=== PATIENT | female | born 1995 | race Caucasian/White ===

== ENCOUNTER 2018-12-08 16:44 | Emergency (ER) | payer BC, SELFPAY ==
--- NOTE | 2018-12-08 17:38 | DI.RAD_ITS ---
EXAM: XR THUMB LT CLINICAL HISTORY: . TECHNIQUE: 2D digital imaging was performed. COMPARISON: None. FINDINGS: BONES: No acute fracture is present. No bony destructive lesion is seen. JOINTS: No dislocation present. SOFT TISSUE: Normal. IMPRESSION: No evidence of acute fracture, dislocation, or subluxation.
--- NOTE | 2018-12-08 17:39 | ED.GENADUL_ITS ---
Discharge Plan Disposition Patient Disposition: HOME Discharge Details Chief Complaint: Orthopedic Clinical Impression: Left thumb sprain Primary Care Provider: Pietro Roman ED Provider: Josesito Escobar Home Meds and New Rx's Prescriptions: Continued multivitamin [Multi-Day] 1 EACH tablet 1 ea PO DAILY RF: 0 epinephrine [EpiPen 2-Jermaine] 0.3 MG/0.3 ML auto-injector 0.3 mg IJ DIRECTED PRNQty: 1 RF: 3 Discharge Instructions Additional Instructions: Use splint for the next 1 week. Please take ibuprofen over the counter. Take 600mg by mouth every 6 hours as needed for pain. Please contact your primary care physician to arrange follow-up. If pain persist she will need additional diagnostic testing. Be sure to discuss with your doctor. Return to the ER for any worsening or new concerning symptoms. Referrals: Pietro Roman MD [Primary Care Provider] - Discharge Data Discharge Date/Time-TO BE ENTERED AT DEPARTURE: 12/08/18 19:10 Medical Decision Making 23-year-old female here with hyper abduction injury to her left thumb, tender at the base of her thumb with concern for ulnar collateral ligament injury. X-ray of the thumb was interpreted by radiology: Questionable minimally displaced fracture versus irregular treated channel at the base of the thumb distal phalanx as detailed above. Patient is not tender in this area. Suspect sprain of the thumb. Patient placed in thumb spica and usual and customary discharge instructions provided. HPI General Mode of arrival: ambulatory . Date/Time Provider Initiated Documentation: 12/08/18 17:21 . Limitations to Documentation: no limitations . Information obtained by: patient . HPI Narrative: 23-year-old female here with left thumb pain. Patient notes she was working on a barn today and a piece of wood fell and landed on her left thumb. She has pain at the base of her thumb. Pain is moderate and worse on palpation and with movement of her thumb. She may have hyperextended her thumb with injury. No associated numbness. No other injury. Related Data Home Medications Medication Instructions Recorded Confirmed multivitamin [Multi-Day] 1 ea PO DAILY 12/20/15 12/08/18 epinephrine [EpiPen 2-Jermaine] 0.3 mg IJ DIRECTED PRN #1 09/30/17 12/08/18 [email or web address].injct Previous Rx's Medication Instructions Recorded epinephrine [EpiPen 2-Jermaine] 0.3 mg IJ DIRECTED PRN #1 09/30/17 auto.injct Allergies Allergy/AdvReac Type Severity Reaction Status Date / Time bee venom protein (honey bee) Allergy Severe anaphylaxis Unverified 12/08/18 17:48 strawberry Allergy Mild Hives Unverified 12/08/18 17:48 dairy products AdvReac Mild upset Uncoded 12/08/18 17:48 stomach Review of Systems Musculoskeletal Musculoskeletal: Reports as per [facility] Medical History Chlamydia infection Urine Chlamydia + . Rx with Azithromycin. Contraception counseled and will have Nexpalon inserted. Family History Other No problems noted. Sister Asthma Social History Smoking/Tobacco Use Status: Never Alcohol Intake: never Drug use: Never Do you feel safe at home: Yes Do you feel safe in your relationship?: Yes Exam Const General: cooperative and healthy appearing Orientation: alert and awake Extrem Left upper extremity: hand Details: neuromotor exam normal, neurosensory exam normal and tenderness Location: of the thumb Location: at the MCP joint
[2018-12-08 17:44] VITALS: BP 116/67; PULSE 100; RESP 14; TEMP 36.7
--- NOTE | 2018-12-08 18:37 | DI.VRAD_ITS ---
EXAM: XR Left Finger(s) EXAM DATE/TIME: 12/08/2018 5:39 PM CLINICAL HISTORY: 23 years old, female; Finger(s); Left; Patient HX: Pain medial proximal thumb, injury TECHNIQUE: Imaging protocol: XR Left fingers. Views: Minimum 2 views. COMPARISON: CR LEFT HAND COMPLETE 05/14/2015 5:26 PM FINDINGS: Bones/joints: There is a very subtle linear lucencies seen at the base of the thumb distal phalanx on image one series 2, questionable for a minimally displaced fracture versus an irregular nutrient channel. No other acutely displaced fractures are appreciated. No dislocation. Soft tissues: Mild soft tissue swelling surrounding the DIP suggested. IMPRESSION: Questionable minimally displaced fracture versus irregular nutrient channel at the base of the thumb distal phalanx, as detailed above. Dictated and Authenticated by: Bruno Navas MD. Ordering:LEIDY Bellamy MD
== END 2018-12-08 19:10 | disposition home or self-care (01) ==
PROVIDERS: Emergency Provider Student in an Organized Health Care Education/Training Program; PCP Pediatrics
DX: S63.602A Unspecified sprain of left thumb, initial encounter (principal)
CPT/HCPCS: 29125; 81025; 99283; 73140; L3807

== ENCOUNTER 2019-05-06 19:47 | Emergency (ER) | payer MEDICAID, SELFPAY ==
[2019-05-06 19:50] VITALS: BP 130/79; PULSE 89; RESP 16; TEMP 36.8; O2SAT 100
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
--- NOTE | 2019-05-06 20:29 | DI.RAD_ITS ---
EXAM: XR CHEST 2V PA LATERAL CLINICAL HISTORY: left sided chest pain. TECHNIQUE: 2D digital imaging was performed. COMPARISON: CHEST 2 VIEWS PA,LAT from 08/31/2015 FINDINGS: LUNGS: Clear. No pleural abnormality seen. HEART: Normal. MEDIASTINUM: Normal. OTHER FINDINGS:Normal. BONE:Normal. IMPRESSION: No acute pulmonary findings.
--- NOTE | 2019-05-06 20:39 | DI.RAD_ITS ---
EXAM: XR SHOULDER LT COMPLETE 2+V CLINICAL HISTORY: pain s/p fall. TECHNIQUE: 2D digital imaging was performed. COMPARISON: No exams were available for comparison FINDINGS: BONES: No acute fracture is present. No bony destructive lesion is seen. JOINTS: No dislocation present. SOFT TISSUE: Normal. IMPRESSION: Unremarkable radiographs of the left shoulder.
--- NOTE | 2019-05-06 20:53 | DI.VRAD_ITS ---
PROCEDURE INFORMATION: Exam: XR Left Shoulder Exam date and time: 05/06/2019 8:37 PM Age: 23 years old Clinical indication: Pain; Shoulder; Left TECHNIQUE: Imaging protocol: XR Left shoulder. Views: 2 or more views. COMPARISON: No relevant prior studies available. FINDINGS: Bones/joints: Normal. Soft tissues: Normal. IMPRESSION: No acute findings. Dictated and Authenticated by: Stew Aviles MD. Ordering:GRISELDA Valenzuela MD
--- NOTE | 2019-05-06 20:53 | DI.VRAD_ITS ---
PROCEDURE INFORMATION: Exam: XR Chest, 2 Views Exam date and time: 05/06/2019 8:30 PM Age: 23 years old Clinical indication: Left-sided chest pain TECHNIQUE: Imaging protocol: XR of the chest Views: 2 views. COMPARISON: CR CHEST 2 VIEWS PA,LAT 08/31/2015 12:27 PM FINDINGS: Lungs: Unremarkable. No consolidation. Pleural space: Unremarkable. No pleural effusion. No pneumothorax. Heart/Mediastinum: Unremarkable. No cardiomegaly. Bones/joints: Unremarkable. IMPRESSION: No acute findings. Dictated and Authenticated by: Stew Aviles MD. Ordering:GRISELDA Valenzuela MD
[2019-05-06] MEDS: Acetaminophen 500 MG TAB 1000 MG PO (20:55)
== END 2019-05-06 21:15 | disposition home or self-care (01) ==
PROVIDERS: Emergency Provider Emergency Medicine; PCP Pediatrics
DX: S40.012A Contusion of left shoulder, initial encounter (principal); R07.81 Pleurodynia; Y04.8XXA Assault by other bodily force, initial encounter; Y07.03 Male partner, perpetrator of maltreatment and neglect
CPT/HCPCS: 81025; 99284; 71046; 73030; L3650

== ENCOUNTER 2019-05-18 18:51 | Emergency (ER) | payer MEDICAID, SELFPAY ==
[2019-05-18 18:54] VITALS: BP 127/79; PULSE 92; RESP 14; TEMP 36.7; O2SAT 100
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
== END 2019-05-18 20:25 | disposition home or self-care (01) ==
PROVIDERS: Emergency Provider Physician Assistant; PCP Specialist/Technologist Athletic Trainer
DX: S40.012D Contusion of left shoulder, subsequent encounter (principal); Y04.8XXD Assault by other bodily force, subsequent encounter
CPT/HCPCS: 99283; 73000

== ENCOUNTER 2019-09-17 12:51 | Emergency (ER) | payer MEDICAID, SELFPAY ==
[2019-09-17 13:02] VITALS: BP 120/84; PULSE 71; TEMP 36.7; O2SAT 100
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
== END 2019-09-17 14:32 | disposition home or self-care (01) ==
PROVIDERS: Emergency Provider Student in an Organized Health Care Education/Training Program; PCP Specialist/Technologist Athletic Trainer
DX: S60.112A Contusion of left thumb with damage to nail, initial encounter (principal); S63.642A Sprain of metacarpophalangeal joint of left thumb, initial encounter; W23.1XXA Caught, crushed, jammed, or pinched between stationary objects, initial encounter
CPT/HCPCS: 11740; 99283; 73140; 99282

== ENCOUNTER 2019-10-14 21:02 | Outpatient (REF) | payer MEDICAID, SELFPAY ==
[2019-10-14 19:38] LABS: HGB 13.9 g/dL (12.0-15.5); Mean Corp. HGB Concentration 33.9 g/dL (32.0-36.0); Mean Corpuscular Hemoglobin 30.8 pg (27.0-33.0); Mean Corpuscular Volume 90.9 fL (80-95); Mean Platelet Volume 11.3 fL (8.0-11.0); Platelet Count 237 x1000/uL (130-400); RBC 4.51 m/cumm (4.00-5.20); RBC Distribution Width 12.8 % (11.7-14.6); White Blood Cell Count 6.07 k/cumm (4.4-10.8)
[2019-10-14 20:08] LABS: Anion Gap 10.5 mmol/L (3-11); BUN 16 mg/dL (7-18); CO2 27.5 mmol/L (21.0-32.0); CREATININE 0.83 mg/dL (0.55-1.02); Calcium 8.8 mg/dL (8.5-10.1); Chloride 102 mmol/L (98-107); FREE T4 1.19 ng/dL (0.76-1.46); Glucose 86 mg/dL (74-106); Sodium 140 mmol/L (136-145); TSH 1.38 uIU/mL (0.36-3.74)
== END 2019-10-14 21:22 ==
LOC: NCHCN 21:02
PROVIDERS: PCP Specialist/Technologist Athletic Trainer; Visit Provider Physician Assistant
DX: Z00.00 Encounter for general adult medical examination without abnormal findings (principal); R63.4 Abnormal weight loss; N64.59 Other signs and symptoms in breast; F41.9 Anxiety disorder, unspecified
CPT/HCPCS: 80048; 85027; 84439; 84443

== ENCOUNTER 2020-02-17 14:48 | Outpatient (REF) | payer MEDICAID, SELFPAY ==
[2020-02-21 06:42] LABS: SARS-CoV-2 RNA Undetected (Undetected); SARS-CoV-2 Specimen Source Nasal
== END 2020-02-17 15:08 ==
LOC: NCHCN 14:48
PROVIDERS: PCP Specialist/Technologist Athletic Trainer; Visit Provider Nurse Practitioner Family
DX: Z20.828 Contact with and (suspected) exposure to other viral communicable diseases (principal)
CPT/HCPCS: U0003

== ENCOUNTER 2020-06-05 16:43 | Emergency (ER) | payer MEDICAID, SELFPAY ==
[2020-06-05 16:47] VITALS: BP 116/68; PULSE 87; RESP 16; TEMP 36.6; O2SAT 100
--- NOTE | 2020-06-05 16:56 | DI.RAD_ITS ---
EXAM: XR CERVICAL SP ROSARIO TRAUMA 2-3V CLINICAL HISTORY: Neck pain, hand tingling, hx scoliosis. TECHNIQUE: 2D digital imaging was performed. COMPARISON: No exams were available for comparison FINDINGS: There is no evidence of acute fracture, listhesis, nor offset of the spinal laminar line. No prevert ebral soft tissue swelling. There is evidence of chronic degenerative disc disease at C5-6 level wit h disc space narrowing and Luschka joint osteophytes. Facets appear unremarkable and without malalig nment. No osseous lesions. No cervical ribs. IMPRESSION: No acute fracture evident in the cervical spine. Degenerative disc disease C5-6 level noted. Sign DATA REPOSITORY: RADIATION DOSE DELIVERED:
--- NOTE | 2020-06-05 16:56 | DI.RAD_ITS ---
EXAM: XR THORACIC SPINE COMPLETE CLINICAL HISTORY: Hx scoliosis, back pain. TECHNIQUE: 2D digital imaging was performed. COMPARISON: CR XR CERVICAL SP ROSARIO TRAUMA 2-3V from 06/05/2020 FINDINGS: There is no evidence of fracture, listhesis, nor disc space narrowing. No abnormal widening of the p araspinal lines. No scoliosis. No osseous lesions. IMPRESSION: No significant radiographic findings in the thoracic spinal column. DATA REPOSITORY: RADIATION DOSE DELIVERED:
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
[2020-06-05] MEDS: Ibuprofen 400 MG TAB PO (18:51)
[2020-06-05] MEDS: Cyclobenzaprine 10 MG TAB PO (18:51)
[2020-06-05 19:21] VITALS: BP 108/62; PULSE 69; RESP 20; O2SAT 100
--- NOTE | 2020-06-05 19:48 | DI.VRAD_ITS ---
PROCEDURE INFORMATION: Exam: XR Cervical Spine Exam date and time: 06/05/2020 5:05 PM Age: 25 years old Clinical indication: Other: Neck pain, hand tingling, HX of scoliosis TECHNIQUE: Imaging protocol: XR of the cervical spine. Views: 2 or 3 views. COMPARISON: No relevant prior studies available. FINDINGS: Bones/joints: There is mild disc space narrowing and endplate spurring at C5-C6 consistent with mild degenerative change. There are few minimal grade 1 cervical subluxations measuring up to 2 mm. No acute compression fractures or displaced fractures are identified. There is straightening of the cervical lordosis. Soft tissues: The prevertebral soft tissues within normal limits. IMPRESSION: 1. Mild degenerative changes at C5-C6. 2. Straightening of the cervical lordosis may be related to muscle spasm or positioning. 3. Multiple minimal cervical subluxations, may be sequela of old trauma. 4. No acute fractures. Dictated and Authenticated by: Martin Rojas MD. Ordering:BERNARD Partida MD
--- NOTE | 2020-06-05 19:50 | DI.VRAD_ITS ---
PROCEDURE INFORMATION: Exam: XR Thoracic Spine Exam date and time: 06/05/2020 5:05 PM Age: 25 years old Clinical indication: Other: Back pain, scoliosis TECHNIQUE: Imaging protocol: XR of the thoracic spine. Views: 3 views. COMPARISON: CR THORACO LUMBAR SPINE AP LAT 01/06/2017 4:17 PM FINDINGS: Bones/joints: No acute compression fractures or displaced fractures are identified. There are no subluxations. The disc spaces are maintained without degenerative changes. Osseous mineralization is normal. There are no inflammatory osseous erosive changes. No focal osseous lesions are identified. Soft tissues: Unremarkable. IMPRESSION: Unremarkable. Dictated and Authenticated by: Martin Rojas MD. Ordering:BERNARD Partida MD
== END 2020-06-05 20:19 | disposition home or self-care (01) ==
PROVIDERS: Emergency Provider Registered Nurse Emergency; PCP Specialist/Technologist Athletic Trainer
DX: M62.830 Muscle spasm of back (principal); M54.6 Pain in thoracic spine; M54.2 Cervicalgia
CPT/HCPCS: 81025; 99284; 72040; 72072

== ENCOUNTER 2020-06-22 02:17 | Outpatient (CLI) | payer MEDICAID, SELFPAY ==
--- NOTE | 2020-06-22 | DI.MRI_ITS ---
EXAM: MR THORACIC SPINE WO CLINICAL HISTORY: MID BACK PAIN, TECHNIQUE: Multiplanar multisequence MRI of the thoracic spine was performed without intravenous con trast. COMPARISON: Recent x-rays 06/05/2020 reviewed FINDINGS: OSSEOUS: There are no acute appearing thoracic vertebral fractures. Marrow signal is normal in all of the thoracic vertebrae. There are no ominous osseous lesions in the thoracic vertebrae. Vertebral body endplates appear unremarkable. There is no evidence of Scheuermann's disease sequela. There is no significant scoliosis. THORACIC SPINAL CORD: There is no abnormal signal in the cervical spinal cord and no evidence of foca l cord atrophy nor focal cord swelling. There is no evidence of syringomyelia nor significant spinal cord dysraphism. There is no evidence of mass at the conus medullaris. The position of the conus me dullaris is normal, at T12-L1 level. SIGNIFICANT INDIVIDUAL LEVEL FINDINGS: Each disc exhibits normal height and hydration signal throughout the thoracic spinal column. There a re no disc herniations. There is no evidence of central spinal canal stenosis nor foraminal stenosis . No significant facet arthropathy. No evidence of epidural masses. No paraspinal masses. No para-aortic adenopathy. PARASPINAL TISSUES: No significant masses nor fluid collections evident. IMPRESSION: 1. No evidence of disc herniation, canal stenosis, or foraminal stenosis in the thoracic spinal colum n. 2. No abnormality of the thoracic spinal cord and conus medullaris. 3. No abnormal marrow signal in the thoracic vertebral bodies. DATA REPOSITORY:
--- NOTE | 2020-06-22 | DI.MRI_ITS ---
EXAM: MR LUMBAR SPINE WO CLINICAL HISTORY: BACK PAIN,M54.9. TECHNIQUE: Multiplanar multisequence MRI of the Lumbar spine was performed. COMPARISON: CR,XR XR THORACIC SPINE COMPLETE from 06/05/2020 FINDINGS: Five lumbar vertebrae are presumed. Incidentally noted is a small cyst in the lateral cortex of the left kidney measuring 6 millimeters. Conus medullaris is at normal level (T12-L1). There is no evidence of conus mass nor subjacent clump ing of intrathecal nerve roots to suggest arachnoiditis. The distal thecal sac appears unremarkable. There is no evidence of significant side Tarlov intrasacral cysts nor other significant findings with in the sacral canal Bones:There are no fractures nor ominous osseous lesions in the lumbar vertebral bodies and visualize d sacrum. With respect to the individual levels... T12-L1: Unremarkable L1-2: Normal disc height and signal. No disc herniation nor central canal stenosis.No foraminal steno sis L2-3: Normal disc height. No disc herniation nor central canal stenosis.No foraminal stenosis.No face t arthropathy. L3-4: Normal disc height. No disc herniation or central canal stenosis.No foraminal stenosis.No face t arthropathy. L4-5: Normal disc height and signal. No significant disc herniation. No central canal stenosis. No foraminal stenosis. No obvious facet arthropathy. L5-S1: Normal disc hydration signal. Slightly decreased disc height. This probably indicates an mesfin ment of sacralization of the L5 segment, difficult to see without plain films. There is no disc juan luis iation. No central canal stenosis. No foraminal stenosis. Soft tissues: paraspinal soft tissues appear unremarkable. IMPRESSION: 1. No evidence of disc herniation nor central canal stenosis nor foraminal stenosis and no evidence o f significant facet joint arthropathy. 2. The appearance of the L5 disc space most probably implies the presence of an element of sacralizat ion of the L5 segment. Recommend two view plain film series of lumbosacral spine for confirmation. This is below the level of the field of view of the recent thoracic spine radiographs. 3. Conus medullaris exhibits normal appearance and position and the distal thecal sac also appears un remarkable. DATA REPOSITORY:
== END 2020-06-22 02:37 ==
PROVIDERS: PCP Nurse Practitioner Family; Visit Provider Nurse Practitioner Family
DX: M54.6 Pain in thoracic spine (principal); M54.5 Low back pain
CPT/HCPCS: 72146; 72148

== ENCOUNTER 2020-07-05 17:23 | Outpatient (REF) | payer MEDICAID, SELFPAY ==
--- NOTE | 2020-07-05 14:00 | PAPFT_PTH ---
PATIENT: Tessa Salazar LOC: [facility] U#:[id number] AGE/SX: 25/F ROOM: RE07/05/[address]: Isa Pablo : 1995 BED: DIS: 07/05/2020 SPEC #: [id number] RECD: 07/06/20 12:55 STATUS: VIOLET RERaymundo #: [id number] TALIA: 07/05/20 14:[address]: Isa Pablo DEPT: [facility] Cytology RECD BY: Brenda Bautista Tissues: 1 - CX/ENDOCX FOR PAP SMEARS Procedures: PAP THIN PREP/UVM Screening Comments: [id number] (CHLAMYDIA/GC)
[2020-07-07 13:52] LABS: Chlamydia Result Negative (Negative); GC Result Negative (Negative)
== END 2020-07-05 17:24 | disposition home or self-care (01) ==
LOC: NCHCN 17:23
PROVIDERS: PCP Nurse Practitioner Family; Visit Provider Nurse Practitioner Family
DX: Z12.4 Encounter for screening for malignant neoplasm of cervix (principal); Z11.3 Encounter for screening for infections with a predominantly sexual mode of transmission; Z01.419 Encounter for gynecological examination (general) (routine) without abnormal findings
CPT/HCPCS: 87491; 87591; 88142

== ENCOUNTER 2020-10-06 12:29 | Outpatient (REF) | payer MEDICAID, SELFPAY ==
[2020-10-07 08:32] LABS: Hepatitis B Surface Ag Negative (Negative)
[2020-10-07 09:19] LABS: Hepatitis C Ab w Rflx HCV PCR Negative (Negative)
[2020-10-07 09:32] LABS: HIV-1/2 Ag & Ab Screen Negative (Negative)
[2020-10-07 10:56] LABS: Syphilis Serology (RPR) Negative (Negative)
[2020-10-07 15:06] LABS: Chlamydia Result Negative (Negative); GC Result Negative (Negative)
== END 2020-10-06 12:30 | disposition home or self-care (01) ==
LOC: NCHCN 12:29
PROVIDERS: PCP Nurse Practitioner Family; Visit Provider Nurse Practitioner Family
DX: Z11.3 Encounter for screening for infections with a predominantly sexual mode of transmission (principal)
CPT/HCPCS: 86803; 87340; 87389; 87491; 87591; 86592; 87480; 87510; 87660

== ENCOUNTER 2020-10-18 21:20 | Emergency (ER) | payer MEDICAID, SELFPAY ==
[2020-10-18 21:24] VITALS: BP 132/75; PULSE 100; RESP 20; TEMP 36.7; O2SAT 100
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
[2020-10-18] MEDS: Famotidine 20 MG TAB PO (21:32)
[2020-10-18] MEDS: diphenhydrAMINE 25 MG CAP 50 MG PO (21:32)
[2020-10-18] MEDS: predniSONE 20 MG TAB 40 MG PO (21:32)
[2020-10-18 22:50] VITALS: BP 122/94; PULSE 84; RESP 17; O2SAT 98
== END 2020-10-18 22:51 | disposition home or self-care (01) ==
PROVIDERS: Emergency Provider Registered Nurse Emergency; PCP Nurse Practitioner Family
DX: T78.1XXA Other adverse food reactions, not elsewhere classified, initial encounter (principal); R07.0 Pain in throat
CPT/HCPCS: 99283; J7512

== ENCOUNTER 2021-01-20 17:27 | Outpatient (REF) | payer MEDICAID, SELFPAY ==
[2021-01-23 16:44] LABS: Chlamydia Result Negative (Negative); GC Result Negative (Negative)
== END 2021-01-20 17:28 | disposition home or self-care (01) ==
LOC: LBN 17:27
PROVIDERS: PCP Nurse Practitioner Family; Visit Provider Family Medicine
DX: R10.9 Unspecified abdominal pain (principal); Z11.3 Encounter for screening for infections with a predominantly sexual mode of transmission
CPT/HCPCS: 87491; 87591

== ENCOUNTER 2021-04-30 15:04 | Emergency (ER) | payer BC, MEDICAID, SELFPAY ==
[2021-04-30 15:11] VITALS: BP 129/81; PULSE 92; RESP 16; TEMP 37.7; O2SAT 100
[2021-04-30 15:36] LABS: Bilirubin Negative (Negative); Blood Negative (Negative); Clarity Clear (Clear); Glucose Negative (Negative); Ketones Negative (Negative); Leukocyte Esterase Negative (Negative); Nitrite Negative (Negative); Urobilinogen 0.2 EU/dL (Up TO 0.2)
[2021-04-30 16:21] LABS: *AMPHETAMINES SCREEN URINE Negative (Negative); *BARBITURATES SCREEN URINE Negative (Negative); *BENZODIAZEPINES SCREEN URINE Negative (Negative); Cannabinoids THC Negative (Negative); Cocaine Screen,Urine Negative (Negative); METHADONE URINE SCREEN Negative (Negative); OPIATES URINE SCREEN Negative (Negative)
[2021-04-30 16:27] LABS: Tricyclic Antidepressants Negative (Negative)
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
== END 2021-04-30 17:21 | disposition home or self-care (01) ==
PROVIDERS: Emergency Provider Student in an Organized Health Care Education/Training Program; PCP Nurse Practitioner Family
DX: F32.A Depression, unspecified (principal)
CPT/HCPCS: 80053; 80307; 81025; 87635; 99283; 80320; 80329; 81003; 84443; 85025

== ENCOUNTER 2021-10-02 09:50 | Emergency (ER) | payer BC, MEDICAID, SELFPAY ==
[2021-10-02 09:58] VITALS: BP 112/70; PULSE 82; RESP 18; TEMP 37.1; O2SAT 98
--- NOTE | 2021-10-02 10:45 | DI.US_ITS ---
Exam(s) US OB 1ST TRIMESTER EXAM: US OB 1ST TRIMESTER CLINICAL HISTORY: vaginal bleeding. TECHNIQUE: First trimester obstetrical ultrasound was performed. Both transabdominal and transvagin al examination is performed. COMPARISON: None FINDINGS: Uterus is nongravid and anteverted, measuring 7.6 cm length by 3.5 cm AP x 4.3 cm wide. There are no uterine fibroids. There is no evidence of intrauterine gestational sac.. There is no fluid in the endometrial canal. The endometrial stripe thickness is 8 millimeters and is homogeneous. No fluid nor debris within the endometrial canal. Maternal ovaries: Left ovary unremarkable. There is a hemorrhagic cyst in the right ovary measuring 5 x 4.7 x 3.9 cm. This is intra-ovarian. T here are no extraovarian adnexal masses. There is no fluid in the cul-de-sac and adnexal regions. IMPRESSION:: 1. No evidence of intrauterine gestational sac on transvaginal study. The endometrium appears normal exhibiting normal thickness and no fluid within the endometrial canal nor debris therein. 2. There is a 5 cm hemorrhagic cyst in the right ovary. Left ovary unremarkable 3. No extraovarian adnexal masses. No fluid in the adnexal regions are cul-de-sac DATA REPOSITORY:
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
[2021-10-02 11:20] LABS: Abs Immature Grans 0.03 10^3/uL (0.0-0.06); Absolute Basophil Count 0.07 10^3/uL (0.0-0.2); Absolute Lymphocyte Count 1.31 10^3/uL (1.2-3.4); Absolute Neutrophil Count 3.52 10^3/uL (1.2-6.7); Basophils % 1.2; Eosinophils % 3.5; HGB 13.1 g/dL (11.2-15.7); Immature Grans % 0.5; Lymphocytes % 22.9; MCHC 33.6 % (32.0-36.0); MCV 92 fL (80-95); MPV 10.4 fL (8.0-11.0); Monocytes % 10.5; Neutrophils % 61.4; Platelet Count 215 10^3/uL (130-400); RBC 4.22 10^6/uL (3.93-5.22); RDW 13.2 % (11.7-14.6); RDW-SD 44.6 fL; WBC 5.73 10^3/uL (4.4-10.8)
--- NOTE | 2021-10-02 12:42 | NUR.NOTE ---
Pt requesting AMA due to not wanting to be here anymore. Pt updated on care plan and still requesting to leave before getting results. Pt states I have the nasreen, I'm just going to go to [facility]. Pt informed on results that are pending and is still requesting to leave AMA, pt signed AMA form. updated on pt request.
--- NOTE | 2021-10-02 12:45 | NUR.NOTE ---
Pt refused Urine test. updated.
[2021-10-02 14:04] LABS: HCG Qual (Serum) Negative
[2021-10-02 17:13] LABS: HCG Beta,Quant Preg <5 mIU/mL (<5)
== END 2021-10-02 12:55 | disposition left against medical advice (07) ==
PROVIDERS: Emergency Provider Student in an Organized Health Care Education/Training Program; PCP Nurse Practitioner Family
DX: O20.9 Hemorrhage in early pregnancy, unspecified (principal); O26.891 Other specified pregnancy related conditions, first trimester; R93.5 Abnormal findings on diagnostic imaging of other abdominal regions, including retroperitoneum; Z87.891 Personal history of nicotine dependence; Z3A.00 Weeks of gestation of pregnancy not specified
CPT/HCPCS: 86850; 86900; 86901; 99284; 76801; 81003; 84702; 84703; 85025; 99282

== ENCOUNTER 2022-02-01 13:39 | Emergency (ER) | payer BC, MEDICAID, SELFPAY ==
[2022-02-01 13:46] VITALS: BP 120/87; PULSE 100; RESP 20; TEMP 36.7; O2SAT 100
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
--- NOTE | 2022-02-01 14:15 | DI.US_ITS ---
Exam(s) US UPPER EXTREMITY VENOUS LT EXAM: US UPPER EXTREMITY VENOUS LT CLINICAL HISTORY: L arm pain, confirm nexplanon in arm. TECHNIQUE: Ultrasound examination of the left upper extremity venous system(s) is performed using gr ayscale, color-flow, and spectral Doppler analysis. COMPARISON: No exams were available for comparison FINDINGS: The left internal jugular, axillary, subclavian, cephalic, basilic, brachial, and median cubital vein s are patent without evidence of thrombosis. They show normal compression and augmentation. No sono graphic evidence of a contraceptive implant is seen in the soft tissues of the left upper extremity. IMPRESSION: 1. No DVT. 2. No evidence of a contraceptive implant is seen in the left upper extremity. 3. Findings were discussed with Dr. Lopez 3:37 p.m. on 02/01/2022. DATA REPOSITORY:
--- NOTE | 2022-02-01 14:15 | DI.CT_ITS ---
Exam(s) CT HEAD WO EXAM: CT HEAD WO CLINICAL HISTORY: headache/neck pain, r/o acute cva. TECHNIQUE: Imaging Protocol: Axial computed tomography images with coronal and sagittal reformatted images were created and reviewed COMPARISON: No exams were available for comparison FINDINGS: Ventricles and Extra axial spaces: Normal in size and morphology for the patient's age. Hemorrhage: None. Cerebral parenchyma: Normal. Midline shift: None. Brainstem/Cerebellum: Normal. Calvarium: Normal. Visualized Paranasal sinuses/Mastoids: Clear. Soft Tissues: Unremarkable. IMPRESSION: 1. No acute intracranial process. 2. Findings were discussed with Dr. Lopez at 3:37 p.m. on 02/01/2022. RADIATION DOSE DELIVERED: 833.63mGy.cm Total DLP DATA REPOSITORY: All CT scans at this facility are submitted to the National Radiology Data Registry (NRDR) Dose Index Registry (DIR) with the [employer] (ACR). RADIATION OPTIMIZATION: All CT scans at this facility use at least one of these dose optimization te chniques: automated exposure control; mA and/or kV adjustment per patient size (includes targeted exa ms where dose is matched to clinical indication); or iterative reconstruction.
[2022-02-01] MEDS: Normal Saline 1,000 ML 1000 ML IV (15:25)
[2022-02-01 15:28] VITALS: TEMP 36.7
[2022-02-01] MEDS: ACETAMINOPHEN 1,000 MG/100 ML BTL 400 MG IVPB (15:28)
[2022-02-01] MEDS: Dexamethasone 10 MG/ML VIAL IVP (15:28)
[2022-02-01] MEDS: Ketorolac 30 MG/ML VIAL IVP (16:16)
[2022-02-01 16:30] VITALS: BP 109/57; PULSE 82; TEMP 36.7; O2SAT 100
[2022-02-01 18:31] VITALS: BP 104/68; PULSE 70; TEMP 36.3; O2SAT 100
--- NOTE | 2022-02-01 18:54 | NUR.NOTE ---
Nursing Note: [facility]errals [facility]
== END 2022-02-01 18:37 | disposition home or self-care (01) ==
PROVIDERS: Emergency Provider Physician Assistant; PCP Nurse Practitioner Family
DX: R51.9 Headache, unspecified (principal); M54.2 Cervicalgia; M79.602 Pain in left arm
CPT/HCPCS: 81025; 96361; 96374; 96375; 99284; 70450; 93971; J0131; J1100; J1885

== ENCOUNTER → 2022-02-09 14:51 | Outpatient (CLI) | payer MEDICAID, SELFPAY ==
--- NOTE | 2022-02-09 12:21 | DI.RAD_ITS ---
Exam(s) XR HUMERUS LT EXAM: XR HUMERUS LT CLINICAL HISTORY: cant see or feel nexplanon Z30.46 SURVEILLANCE. TECHNIQUE: 2D digital imaging was performed. COMPARISON: No exams were available for comparison FINDINGS: 3 views No evidence fracture nor dislocation nor abnormal soft tissue calcifications. Bone density normal. No osseous lesions. Glenohumeral joint and subacromial space and AC joint appear unremarkable. Dist ally the epicondyles appear unremarkable. IMPRESSION: No significant osseous findings in the humerus. DATA REPOSITORY: RADIATION DOSE DELIVERED:
== END ==
PROVIDERS: PCP Nurse Practitioner Family; Visit Provider Obstetrics & Gynecology
DX: Z30.46 Encounter for surveillance of implantable subdermal contraceptive (principal)
CPT/HCPCS: 73060

== ENCOUNTER 2022-02-10 11:35 | Emergency (ER) | payer MEDICAID, SELFPAY ==
[2022-02-10 11:41] VITALS: BP 110/75; PULSE 97; RESP 18; TEMP 37.5; O2SAT 98
--- NOTE | 2022-02-10 12:15 | DI.RAD_ITS ---
Exam(s) XR CHEST 1V IN DI DEPT EXAM: XR CHEST 1V IN DI DEPT CLINICAL HISTORY: nexplanon implant not in arm. TECHNIQUE: 2D digital imaging was performed. COMPARISON: CR,XR XR CHEST 2V PA LATERAL from 05/06/2019 FINDINGS: LUNGS: Clear. No pleural abnormality seen. HEART: Normal. MEDIASTINUM: Normal. OTHER FINDINGS: None. IMPRESSION: No acute pulmonary findings. No foreign body identified. DATA REPOSITORY: RADIATION DOSE DELIVERED: Total DLP
--- NOTE | 2022-02-10 12:18 | DI.RAD_ITS ---
Exam(s) XR HUMERUS RT EXAM: XR HUMERUS RT CLINICAL HISTORY: nexplanon implant not found in left arm TECHNIQUE: COMPARISON: CR XR HUMERUS LT from 02/09/2022 CR XR CHEST 1V IN DI DEPT from 02/10/2022 FINDINGS: Two views of the upper arm were obtained. There is an IV in place in the soft tissues of the forearm . No foreign body identified. No bony abnormality seen. IMPRESSION: RADIATION DOSE DELIVERED: Total DLP
--- NOTE | 2022-02-10 12:32 | ED.GENADUL_ITS ---
Discharge Plan Disposition Condition: Stable Discharge Details Chief Complaint: Anxiety Primary Care Provider: Isa Pablo ED Provider: Destin Martines Home Meds and New Rx's Prescriptions: No Action multivitamin Tablet 1 tab PO DAILY epinephrine [EpiPen 2-Jermaine] 0.3 MG/0.3 ML auto-injector 0.3 mg IJ DIRECTED PRNQty: 1 3RF Medical Decision Making 26-year-old female history of depression, eating disorder, presents with worsening depression, has had a difficult time obtaining outpatient psychiatric treatment has been on a waiting list to see a provider for over a year, endorses decreased appetite and weight loss. Denies SI or HI. Denies delusions or hallucinations. Hemodynamically stable afebrile nontoxic. Endorses a safe home environment. Also states that she did have a Nexplanon implant in her arm however x-ray showed that it was not there. No chest pain or shortness of breath. We will obtain basic labs to assess for any electrolyte abnormalities or low protein state likely related to decreased p.o. intake. We will also obtain screening x-ray of right upper extremity and chest to assess for any migration of implants. Mental health screener to preparole counseling aide patient at bedside awaiting recommendations for disposition. Likely home with safety plan. 20: 14 patient resting comfortably no acute distress. Evaluated by [facility] human services, will be staying in the emergency department tonight with hopes that we will find placement tomorrow in the morning for inpatient psychiatric treatment. Sign Out Yes HPI General Date/Time Provider Initiated Documentation: 02/10/22 11:37 . HPI Narrative: 26-year-old female history of depression, eating disorder, presents with worsening depression decreased p.o. intake. Denies SI or HI. Denies delusions or hallucinations. Endorses a safe home environment. Does have a history of self cutting has not performed any self injures behavior on herself. Related Data Home Medications Medication Instructions Recorded Confirmed epinephrine 0.3 mg/0.3 mL 0.3 mg (0.3 mL) IJ DIRECTED PRN 09/30/17 02/10/22 injection, auto-injector (EpiPen ##1 2-Jermaine) multivitamin 1 tab PO DAILY 02/09/22 02/10/22 Previous Rx's Medication Instructions Recorded epinephrine 0.3 mg/0.3 mL 0.3 mg (0.3 mL) IJ DIRECTED PRN 09/30/17 injection, auto-injector (EpiPen ##1 2-Jermaine) Allergies Allergy/AdvReac Type Severity Reaction Status Date / Time bee venom protein (honey bee) Allergy Severe anaphylaxis Unverified 02/10/22 11:49 shellfish derived Allergy Severe Verified 02/10/22 11:49 shrimp Allergy Severe Verified 02/10/22 11:49 strawberry Allergy Mild Hives Unverified 02/10/22 11:49 dairy products AdvReac Mild upset Uncoded 02/10/22 11:49 stomach General Stated Complaint: Anxiety YASMINE: 3 Review of Systems Narrative: Review of Systems Constitutional: negative Eyes: negative ENT: negative Cardiovascular: negative Respiratory: negative Gastrointestinal: negative : negative Musculoskeletal: negative Skin: negative Neurologic: negative Psych: Depression PFSH All Active Problems Encounter for surveillance of Nexplanon subdermal contraceptive (Acute) Headache (Acute) Cervicalgia (Acute) No-show for appointment (Acute) Injury of left shoulder (Acute) Crepitus of left shoulder joint (Acute) SLAP lesion of left shoulder (Acute) Contusion of left shoulder (Acute) Back pain (Acute) Muscle spasm (Acute) Throat discomfort (Acute) Allergic reaction (Acute) Medical History Anemia Chlamydia infection Urine Chlamydia + 927/16. Rx with Azithromycin. Contraception counseled and will have Nexpalon inserted. Eating disorder Family History Other No problems noted. Sister Asthma Social History Smoking/Tobacco Use Status: Current every day Tobacco Type: e-cigarettes Quit status: considering quitting Smoking risk assessment performed?: Yes Alcohol Intake: never Drug use: Occasionally Substance use type: marijuana In current or past relationships, have you been: hurt Do you feel safe at home: Yes Do you feel safe in your relationship?: Yes Female Reproductive History Menstrual Duration of menses: 3-5 days control method: implanted History History 2 Para Hx # Term Pregnancies Multiple births Hx # Pregnancies Ectopic pregnancies AB induced Hx Number of Living Children AB spontaneous 2 Exam Narrative Exam Narrative: Physical Examination General: alert, awake, cooperative, resting comfortably, no acute distress HEENT: normocephalic, atraumatic; PERRL, EOM intact, conjunctiva normal; no nasal discharge; moist mucous membranes, oral and pharyngeal mucosa normal, tolerating secretions Neck: supple, trachea midline; full ROM Chest: normal to inspection Respiratory: normal respiratory effort, speaking in full sentences, clear to auscultation, no wheezing, rales or rhonchi Cardiac: regular rate, regular rhythm, S1S2 intact, no murmurs rubs or gallops GI: abdomen soft, non-tender, non-distended; no palpable mass or hepatosplenomegaly Skin: no lesions, rashes or trauma appreciated Neuro: AAOx3, normal speech, moving all extremities Psych: Depression Course Vital Signs Vital signs: Vital Signs Temperature 37.5 C 02/10/22 11:41 Pulse 97 H 02/10/22 11:41 Respiratory Rate 18 02/10/22 11:41 Blood Pressure 110/75 02/10/22 11:41 Pulse Oximetry 98 02/10/22 11:41 Temperature 37.5 C 02/10/22 11:41 Temperature Source Temporal Artery Scan 02/10/22 11:41 Pulse 97 H 02/10/22 11:41 Respiratory Rate 18 02/10/22 11:41 Respiratory Effort Non-Labored 02/10/22 11:47 Blood Pressure 110/75 02/10/22 11:41 Blood Pressure Position Sitting 02/10/22 11:41 Pulse Oximetry 98 02/10/22 11:41 Oxygen Delivery Method Room Air 02/10/22 11:41 Oxygen Flow Rate 0 02/10/22 11:41 Pain Level 8 02/10/22 11:41 Comment 02/10/22 11:41 PAWSS Have you Been Recently Intoxicated or Drunk Within the Last 30 days?: No Have you Ever Experienced Previous Episodes of Alcohol Withdrawal?: No Have you ever Experienced Withdrawal Seizures?: No Have you ever Experienced Delirium Tremens(DT)s?: No Have you ever undergone Alcohol Rehabilitation Treatment (i.e, inpt ot outpatient treatment programs)?: No Have you ever Experienced Blackouts?: No Have you ever Combined Alcohol with other Downers within the last 90 days?: No Have you ever Combined Alcohol with any other Substance of Abuse during the last 90 days?: No Positive Blood Alcohol level on Presentation? [PCS.BAL]: No Evidence of Increased Autonomic Activity (i.e. HR>120, tremor, sweating, agitation, nausea)?: No Result: 0
[2022-02-10 12:41] LABS: Abs Immature Grans 0.03 10^3/uL (0.0-0.06); Absolute Basophil Count 0.05 10^3/uL (0.0-0.2); Absolute Eosinophil Count 0.18 10^3/uL (0.0-0.7); Absolute Lymphocyte Count 1.56 10^3/uL (1.2-3.4); Absolute Monocyte Count 0.59 10^3/uL (0.1-0.8); Absolute Neutrophil Count 3.88 10^3/uL (1.2-6.7); Basophils % 0.8; Eosinophils % 2.9; HCT 40.1 % (36.0-46.0); HGB 13.4 g/dL (11.2-15.7); Immature Grans % 0.5; Lymphocytes % 24.8; MCH 30.7 pg (27.0-33.0); MCHC 33.4 % (32.0-36.0); MCV 92 fL (80-95); MPV 9.9 fL (8.0-11.0); Monocytes % 9.4; Neutrophils % 61.6; Platelet Count 225 10^3/uL (130-400); RBC 4.37 10^6/uL (3.93-5.22); RDW 12.4 % (11.7-14.6); RDW-SD 41.7 fL; WBC 6.29 10^3/uL (4.4-10.8)
[2022-02-10 13:05] LABS: ALT 16 U/L (14-59); AST 16 U/L (15-37); Albumin 4.3 g/dL (3.4-5.0); Alkaline Phosphatase 62 U/L (46-116); Anion Gap 7.4 mmol/L (3-11); BUN 19 mg/dL (7-18); Bilirubin, Total 0.4 mg/dL (0.2-1.0); CO2 30.6 mmol/L (21.0-32.0); CREATININE 1.1 mg/dL (0.55-1.02); Chloride 104 mmol/L (98-107); Estimated GFR 71.96 (mL/min/1.73m2); Glucose 76 mg/dL (74-106); Potassium 3.6 mmol/L (3.5-5.1); Sodium 142 mmol/L (136-145); TSH (W/Ref FT4) 3.29 uIU/mL (0.36-3.74); Total Protein 7.4 g/dL (6.4-8.2)
--- NOTE | 2022-02-10 20:12 | PDOC.MHCN ---
Date of service: 02/10/22 Time of Service: 20:13 PHQ-9 Over the last 2 weeks, how often have you been bothered by any of the following problems? 1. Little interest or pleasure in doing things: more than half the days 2. Feeling down, depressed, or hopeless: nearly every day 3. Trouble falling or staying asleep, or sleeping too much: nearly every day 4. Feeling tired or having little energy: nearly every day 5. Poor appetite or overeating: nearly every day 6. Feeling bad about yourself - or that you are a failure or have let yourself and your family down: more than half the days 7. Trouble concentrating on things, such as reading the newspaper or watching television: several days 8. Moving or speaking so slowly that other people could have noticed? - Or the opposite - being so fidgety or restless that you have been moving around a lot more than usual: several days 9. Thoughts that you would be better off or of hurting yourself in some way: several days Total score: 19 If you checked off any problems, how difficult have these problems made it for you to do your work, take care of things at home, or get along with other people?: somewhat difficult Source: Developed by Drs. Enoc Gurrola, Mari Gloria, Jin Colindres and colleagues, with an educational ross from [employer]. Suicide Severity Rate CSSRS Have you wished you were or wished you could go to sleep and not wake up?: No Have you actually had any thoughts of killing yourself?: No CSSRS4 Was this within the past three months?: Yes Screening Score Total Score: 2 Screening: Positive Mental Health Emergency Note Release [facility] release signed:: Yes Reason for Visit Client arrived to the ED this afternoon after reporting to this clinician that she was having ?bad symptoms relating to my mental illness.? Client reported that she is having continuous battles with her eating disorder and struggling to have the energy to even go to work. She denied suicidal ideation as well as homicidal ideation. Client reported she struggled with the symptoms since she was 14 years old. Client was adopted when she was younger however, currently is living with her biological family as well as her significant other. Client reports ?all they do is send you here and there but no one tries to hear what is actually going on.? In the last 2 weeks has the pt presented for ES prior to today?: Unknown Client Information Client is: New Well Housed: Yes Non Suicidal Self Injury Current: Yes, I guess not eating. History: yes, History of cutting but none in the last year. Safety Risk/Harm to Self or Others Current Ideation to Harm Self or Others: No Risk: Does risk to harm exist?: No Risk: N/A Duty to warn indicated: No Asssessment/Mental Status Appearance: Well groomed Attitude: Cooperative and Friendly Behavior: Unremarkable Speech: Normal Affect: Cogruent with mood Mood: Sad, Stressed, Depressed and Anxious Thought process: Goal directed Hallucinations: No Delusions: No Attention: Unremarkable Perception: Not impaired Orientation: Fully orientated Memory: Intact Insight: Good Judgement: Good Neurovegetative Symptoms Sleep: Decrease Appetitie: Decrease Interests: Decrease Energy: Decrease Libido: Not applicable Substance Use: Do you use nicotine?: No Additional Issues: Assaultive/Threatening Behavior: No Medical Concerns: No Client engaged in active self harm w/weapon: No Threatening to run away: No Child reported abuse/neglect: No Voluntarily presenting for services: Yes Domestic violence is a concern: No Extreme Psychosis or extreme behavior is present: No Impression Client is a 26-year-old, single, , female. who currently lives with her biological father and family, including her significant other, Ronn.? 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 She endorses that she smokes marijuana occasionally for pain. Client endorses that she is compassionate towards others hence, why she is an TRANSPORTATION EQUIPMENT PAINTER. Client cannot identify her specific needs at this time although at the tie of her call she endorsed she feels weak and unable to function for her day to day responsibilities. Client reported she can go days without eating, up to 3 to 5 days and struggles with headaches and migraines as well as, abdominal pains on her ovaries. Client currently is not taking any medication?s. Client endorsed a family history of mental illness, but denied a family history of substance abuse, and legal issues are unknown. Client denied family history of suicide. Client endorsed ?a lot of trauma from family history.? Client's symptoms of a decreased appetite as well as sleep, interest and energy are congruent with a major depressive disorder and recurrent and moderate. This incongruent with her PHQ9 where she scored a 19/27 support this diagnosis. Resources [facility] reviewed and given:: [facility] and [facility] Plan/Disposition Recommended Disposition: Hospitalization facilities contacted. Plan: Client will remain at [facility] at this time. She is seeking a voluntary admission after speaking to her significant other and is endorsing feeling supported by this decision. Client is willing to give up her personal belongings including her cell phone so that she can get the necessary treatment she is in need of to begin her journey to wellbeing. Referrals will be sent out tonight as well as on 02.11.2022. Person reported agreement to plan: Yes Reports/communication Outcome discussed with: ED/Personnel
[2022-02-10 20:28] LABS: Source Nasal/Nares
[2022-02-10 20:56] LABS: *AMPHETAMINES SCREEN URINE Negative (Negative); *BARBITURATES SCREEN URINE Negative (Negative); *BENZODIAZEPINES SCREEN URINE Negative (Negative); Cannabinoids THC Positive (Negative); Cocaine Screen,Urine Negative (Negative); METHADONE URINE SCREEN Negative (Negative); OPIATES URINE SCREEN Negative (Negative)
[2022-02-10 20:59] LABS: COVID-19 PCR Negative (Negative)
[2022-02-10 21:00] LABS: Tricyclic Antidepressants Negative (Negative)
[2022-02-11 15:16] VITALS: BP 112/75; PULSE 82; TEMP 37.3; O2SAT 98
--- NOTE | 2022-02-11 16:24 | W.EDPROG ---
Date of service: 02/11/22 Time of Service: 16:25 Medical Decision Making Care was signed out by Dr. Sanchez with plan to follow-up on mental health recommendations regarding treatment plan. Patient has been medically cleared. Patient had multiple conversations with crisis screener today. [facility] crisis screener notes patient stable for discharge. Plan will be for discharge with safety plan and outpatient follow-up. Patient is agreeable with this plan and prefers to be at home as opposed to waiting here and does contract for safety. No firearms in the home. Sign Out No Sign Out Sign Out Data: Sign Out Comment: voluntary psych, depression; hopeful placement in AM Last updated by Destin Martines MD at 02/10/22 20:17 Sign Out Comment: Depression, stable throughout the night. Hopeful placement in the morning per mental health Last updated by Pietro Sanchez DO at 02/11/22 07:47 Discharge Plan Disposition Patient Disposition: Home Condition: Stable Discharge Details Clinical Impression: Depression, Anxiety Primary Care Provider: Isa Pablo ED Provider: Josesito Escobar Home Meds and New Rx's Prescriptions: Continued multivitamin Tablet 1 tab PO DAILY epinephrine [EpiPen 2-Jermaine] 0.3 MG/0.3 ML auto-injector 0.3 mg IJ DIRECTED PRNQty: 1 3RF Discharge Instructions Instructions: Depression (ED), Anxiety (ED) Additional Instructions: Please follow-up with services and your primary care physician. Return to the emergency department immediately for any worsening or new concerning symptoms. The emergency department is a safe place to go if you ever need help. Stand Alone Forms: Work Release Referrals: [facility] [Outside] Isa Pablo [Primary Care Provider] - Discharge Data Discharge Date/Time-TO BE ENTERED AT DEPARTURE: 02/11/22 16:47
--- NOTE | 2022-02-13 14:45 | PDOC.MHPN2 ---
Date of service: 02/11/22 Time of Service: 14:45 PHQ-9 Over the last 2 weeks, how often have you been bothered by any of the following problems? 1. Little interest or pleasure in doing things: more than half the days 2. Feeling down, depressed, or hopeless: nearly every day 3. Trouble falling or staying asleep, or sleeping too much: nearly every day 4. Feeling tired or having little energy: nearly every day 5. Poor appetite or overeating: nearly every day 6. Feeling bad about yourself - or that you are a failure or have let yourself and your family down: more than half the days 7. Trouble concentrating on things, such as reading the newspaper or watching television: several days 8. Moving or speaking so slowly that other people could have noticed? - Or the opposite - being so fidgety or restless that you have been moving around a lot more than usual: several days 9. Thoughts that you would be better off or of hurting yourself in some way: several days Total score: 19 If you checked off any problems, how difficult have these problems made it for you to do your work, take care of things at home, or get along with other people?: somewhat difficult Source: Developed by Drs. Enoc Gurrola, Mari Gloria, Jin Colindres and colleagues, with an educational ross from [employer]. Suicide Severity Rate CSSRS Have you wished you were or wished you could go to sleep and not wake up?: No Have you actually had any thoughts of killing yourself?: No CSSRS4 Was this within the past three months?: Yes Screening Score Total Score: 2 Screening: Positive Mental Health Emergency Note Release [facility] release signed:: Yes Reason for Visit Client arrived to the ED on 02.10.2022 after reporting to this clinician that she was having ?bad symptoms relating to my mental illness.? Client reported that she is having continuous battles with her eating disorder and struggling to have the energy to even go to work. She denied suicidal ideation as well as homicidal ideation. Client reported she struggled with the symptoms since she was 14 years old. Client was adopted when she was younger however, currently is living with her biological family as well as her significant other. Client reports ?all they do is send you here and there but no one tries to hear what is actually going on.? Client requested to speak to this clinician again. She endorsed that she is lonely and misses her family and wants to go home but knows she needs to stay. She is sad that she does not see her adoptive family much and does not know why they do not want to hang out with her. She requested a counseling referral. In the last 2 weeks has the pt presented for ES prior to today?: Unknown Client Information Client is: New Well Housed: Yes Non Suicidal Self Injury Current: No History: yes, cutting none in the last year. Safety Risk/Harm to Self or Others Current Ideation to Harm Self or Others: No Risk: Does risk to harm exist?: No Risk: N/A Duty to warn indicated: No Asssessment/Mental Status Appearance: Disheveled Attitude: Cooperative Behavior: Unremarkable Speech: Normal Affect: Cogruent with mood Mood: Sad, Stressed, Depressed, Anxious and Irritable Thought process: Other (Client is at times inconsistent with her wish to be placed or go home. ) Hallucinations: No Delusions: No Attention: Unremarkable Perception: Not impaired Orientation: Fully orientated Memory: Intact Insight: Fair Judgement: Fair Neurovegetative Symptoms Sleep: No change Appetitie: No change Interests: No change Energy: No change Libido: Not applicable Substance Use: Drug Issues: Other (THC for pain management) Do you use nicotine?: Yes Have you used substances in the last 7 days?: yes, THC Additional Issues: Assaultive/Threatening Behavior: No Medical Concerns: No Client engaged in active self harm w/weapon: No Threatening to run away: No Child reported abuse/neglect: No Voluntarily presenting for services: Yes Domestic violence is a concern: No Extreme Psychosis or extreme behavior is present: No Impression Client is a 26 year old, single, female who lives with her biological family and fiance in [facility]. She was adopted as a child and is upset and reports she does not know why they do not have anything to do with her. Client is deregulated as she speaks of her family as well as her ongoing symptoms of physical pain since childhood, and emotional pain now. She is inconsistent with what she wants to do as she wants to go inpatient but does not want to stay at the ED to wait for treatment. She challenges the process that needs to be followed however, this clinician explained that [facility] does not have control over this. A safety plan was offered her as well but ultimately she decided to stay. Later in the day the cleint requested to speak to this clinicain again and this was done via phone. Again, client struggles to accept that she needs to stay in the hospital to be referred to a psychiatric hospital. We begin to do a safety plan and then she stated she wanted to stay. She also expressed being upset that she was moved out of the ED and was in another part of the hospital by herself and alone with her thoughts. She is hungry because she declined her lunch option and asked for a sandwich which [facility] reported she did not get. We agreed to have her boyfriend outreach to her. After this call the client again called to say she wanted to discharge home. Resources [facility] reviewed and given:: [phone], Community therapist and [facility] Plan/Disposition Recommended Disposition: Crisis bed, No, [facility] Services: Therapy and Hospitalization No. Plan: Client discharged home on a safety plan. Person reported agreement to plan: Yes Reports/communication Outcome discussed with: ED/Personnel
== END 2022-02-11 16:47 | disposition home or self-care (01) ==
PROVIDERS: Emergency Medicine; Emergency Provider Student in an Organized Health Care Education/Training Program; PCP Nurse Practitioner Family
DX: F32.A Depression, unspecified (principal); Z20.822 Contact with and (suspected) exposure to COVID-19
CPT/HCPCS: 80053; 80307; 81025; 87635; 99284; 71045; 73060; 84443; 85025

== ENCOUNTER 2022-12-09 19:52 | Emergency (ER) | payer MEDICAID, SELFPAY ==
[2022-12-09] VITALS (23 sets, daily range): BP systolic 106–124; BP diastolic 63–85; PULSE 75–88; RESP 14–16; TEMP 36.6–36.9; O2SAT 99–100
[2022-12-09 21:15] LABS: ALT 16 U/L (14-59); AST 16 U/L (15-37); Albumin 4.1 g/dL (3.4-5.0); Alkaline Phosphatase 64 U/L (46-116); Anion Gap 9.9 mmol/L (3-11); BUN 11 mg/dL (7-18); Bilirubin, Total 0.3 mg/dL (0.2-1.0); CO2 25.1 mmol/L (21.0-32.0); CREATININE 0.7 mg/dL (0.55-1.02); Calcium 9.1 mg/dL (8.5-10.1); Chloride 103 mmol/L (98-107); Estimated GFR 123.01 (mL/min/1.73m2); Glucose 90 mg/dL (74-106); Potassium 3.2 mmol/L (3.5-5.1); Sodium 138 mmol/L (136-145); Total Protein 7.3 g/dL (6.4-8.2)
[2022-12-09 21:47] LABS: HCG Quant, Pregnancy 11763 mIU/mL (1-3)
--- NOTE | 2022-12-09 22:02 | NUR.NOTE ---
Referral [facility] to [facility] to f/u 12/10/22 for r sided abd pain and spotting with .Nursing Note:
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
[2022-12-09] MEDS: Potassium Chloride 20 MEQ TABCR PO (22:22)
[2022-12-09 22:24] LABS: Bilirubin Negative (Negative); Blood Negative (Negative); Clarity Clear (Clear); Glucose Negative (Negative); Ketones 15 mg/dL (Negative); Leukocyte Esterase Negative (Negative); Nitrite Negative (Negative); Specific Gravity 1.015 (1.005-1.025); Urobilinogen 0.2 mg/dL (Up to 0.2)
== END 2022-12-09 23:00 | disposition home or self-care (01) ==
PROVIDERS: Emergency Provider Emergency Medicine; PCP Nurse Practitioner Family
DX: O20.9 Hemorrhage in early pregnancy, unspecified (principal)
CPT/HCPCS: 36415; 80053; 86900; 86901; 99283; 81003; 84702

== ENCOUNTER → 2022-12-10 14:52 | Outpatient (CLI) | payer MEDICAID, SELFPAY ==
--- NOTE | 2022-12-10 14:00 | DI.US_ITS ---
Exam(s) US OB 1ST TRIMESTER EXAM: US OB 1ST TRIMESTER CLINICAL HISTORY: no IUP on u/s ? ectopic R adnexa,z34.90. COMPARISON: US POCUS EXAM from 12/10/2022 TECHNIQUE: Transabdominal Transvaginal first trimester obstetrical ultrasound performed. FINDINGS: Sonographic images demonstrate a small cystic areas seen within the endometrium measuring 3 millimet ers. This could represent an early intrauterine . No pole visible. No free fluid identified. Both ovaries appear sonographically normal. Endometrial stripe measures 13 millimeters in thickness. IMPRESSION: Small small small cystic area in endometrium could represent early intrauterine . No p ole visible. No evidence of ectopic . DATA REPOSITORY:
== END ==
PROVIDERS: PCP Nurse Practitioner Family; Visit Provider Obstetrics & Gynecology Gynecology
DX: Z34.91 Encounter for supervision of normal pregnancy, unspecified, first trimester (principal)
CPT/HCPCS: 76801

== ENCOUNTER 2022-12-11 03:47 | Outpatient (CLI) | payer MEDICAID, SELFPAY ==
[2022-12-11 08:15] LABS: HCG Quant, Pregnancy 14581 mIU/mL (1-3)
== END 2022-12-11 03:48 | disposition home or self-care (01) ==
LOC: LBO 03:47
PROVIDERS: PCP Nurse Practitioner Family; Visit Provider Obstetrics & Gynecology Gynecology
DX: O20.8 Other hemorrhage in early pregnancy (principal); Z3A.01 Less than 8 weeks gestation of pregnancy
CPT/HCPCS: 36415; 84702

== ENCOUNTER 2022-12-12 16:26 | Outpatient (CLI) | payer MEDICAID, SELFPAY ==
[2022-12-12 15:27] LABS: HCT 36.1 % (36.0-46.0); HGB 12.4 g/dL (11.2-15.7); MCH 30.8 pg (27.0-33.0); MCHC 34.3 % (32.0-36.0); MCV 90 fL (80-95); MPV 10.3 fL (8.0-11.0); Platelet Count 214 10^3/uL (130-400); RBC 4.02 10^6/uL (3.93-5.22); RDW 12.3 % (11.7-14.6); RDW-SD 40.2 fL; WBC 7.57 10^3/uL (4.4-10.8)
[2022-12-12 16:17] LABS: Anion Gap 4.9 mmol/L (3-11); BUN 17 mg/dL (7-18); CO2 28.1 mmol/L (21.0-32.0); CREATININE 0.7 mg/dL (0.55-1.02); Calcium 9.3 mg/dL (8.5-10.1); Chloride 105 mmol/L (98-107); Estimated GFR 123.01 (mL/min/1.73m2); Glucose 101 mg/dL (74-106); Potassium 3.6 mmol/L (3.5-5.1); Sodium 138 mmol/L (136-145)
== END 2022-12-12 16:27 | disposition home or self-care (01) ==
LOC: LBO 16:26
PROVIDERS: PCP Nurse Practitioner Family; Visit Provider Obstetrics & Gynecology Gynecology
DX: O00.102 Left tubal pregnancy without intrauterine pregnancy (principal); Z01.818 Encounter for other preprocedural examination; Z01.812 Encounter for preprocedural laboratory examination
CPT/HCPCS: 36415; 80048; 85027; 86850; 86900; 86901; 90384

== ENCOUNTER 2022-12-13 06:02 | Day surgery (SDC) | payer MEDICAID, SELFPAY ==
[2022-12-13] VITALS (12 sets, daily range): BP systolic 94–118; BP diastolic 44–97; PULSE 58–85; RESP 11–18; TEMP 36.5–37.1; O2SAT 99–100; BMI 18.6
[2022-12-13] MEDS: Lactated Ringers 1,000 ML 125 ML IV ×2 (07:10→09:40)
--- NOTE | 2022-12-13 07:32 | ANES.PREOP_ITS ---
General Info Date of Service Date Performed: 12/13/22 Height: 5 ft 2 in Weight: 46.3 kg Body Mass Index (BMI): 18.6 Surgical Procedure: Operation Date: 12/13/22 07:40 Proposed Procedure Side Surgeon p Laparoscopy Latisha Salazar MD s Dilation & Curettage Latisha Salazar MD Actual Procedure Side Surgeon p Laparoscopy Not Applicable Latisha Salazar MD s Dilation & Curettage Not Applicable Latisha Salazar MD Pre-Op Diagnosis Post-Op Diagnosis Threatened Meds Allergies and Home Medications Allergies Allergy/AdvReac Type Severity Reaction Status Date / Time bee venom protein (honey bee) Allergy Severe anaphylaxis Unverified 12/13/22 06:37 shellfish derived Allergy Severe Verified 12/13/22 06:37 shrimp Allergy Severe Verified 12/13/22 06:37 strawberry Allergy Mild Hives Unverified 12/13/22 06:37 dairy products AdvReac Mild upset Uncoded 12/13/22 06:37 stomach Home Medication Medication Instructions Recorded epinephrine 0.3 mg/0.3 mL 0.3 mg (0.3 mL) IJ DIRECTED PRN 09/30/17 injection, auto-injector (EpiPen ##1 2-Jermaine) vitamin#30 30 mg iron-10 1 cap PO DAILY 12/10/22 mg iron-folic acid 1 mg-omg3 capsule Current Visit Medications: Current Medications Generic Name Dose Route Start Last Admin Trade Name Freq PRN Reason Stop Dose Admin Ringer's Solution 1,000 mls @ 125 mls/hr 12/13/22 06:15 12/13/22 07:10 IV 01/12/23 06:14 125 mls/hr INFUSION MONICA Administration Sodium Chloride 500 mls @ 0 mls/hr 12/13/22 07:29 Saline 500ml Bag IV 01/12/23 07:28 PRN PRN As Directed IV Miscellaneous Supplies 1 each 12/13/22 07:30 Iv Access IV 01/12/23 07:29 DIRECTED MONICA Sodium Chloride 0 ml 12/13/22 07:29 Normal Saline Flush 10 Ml Syr IVP 01/12/23 07:28 PRN PRN PFSH Active Problems Active Problems: Problem Status Onset Code Back pain M54.9 Muscle spasm M62.838 Throat discomfort R07.0 Allergic reaction T78.40XA Missed menses N92.6 Z34.90 [place] teeth extracted K08.409 Abnormal ultrasound R93.89 Medical History Medical History Anemia Chlamydia infection Urine Chlamydia + 927/16. Rx with Azithromycin. Concussion (02/26/12) Contraception counseled and will have Nexpalon inserted. Contusion of left shoulder Crepitus of left shoulder joint Eating disorder Per pt. states resolved Injury of left shoulder SLAP lesion of left shoulder Medical History Comments:: pt only sedated for wisdom teeth, no significant anesthesia history Tobacco Smoking/Tobacco Use Status: Current every day Tobacco Type: cigarettes Smoking cigarettes per day: 4 and e-cigarettes Alcohol Alcohol Intake: never Substance Use Substance use: Occasionally Substance use type: marijuana Details: last marijuana use a couple days ago Prental History History 3 Para Hx # Term Pregnancies Multiple births Hx # Pregnancies Ectopic pregnancies AB induced Hx Number of Living Children 0 AB spontaneous 2 Vital Signs and Lab Results Vital Signs Most Recent Vital Signs in EMR: Most Recent Vital Signs Temp Pulse Resp BP Pulse Ox 37.1 C 78 18 101/67 100 12/13/22 06:38 12/13/22 06:38 12/13/22 06:38 12/13/22 06:38 12/13/22 06:38 Lab Results Blood Type / Crossmatch: Patient ABO/Rh O Negative 12/12/22 Antibody Screen NEGATIVE 12/12/22 Complete Blood Count: White Blood Count 7.57 10^3/uL (4.4-10.8) 12/12/22 15:10 Red Blood Count 4.02 10^6/uL (3.93-5.22) 12/12/22 15:10 Hemoglobin 12.4 g/dL (11.2-15.7) 12/12/22 15:10 Hematocrit 36.1 % (36.0-46.0) 12/12/22 15:10 Platelet Count 214 10^3/uL (130-400) 12/12/22 15:10 Complete Metabolic Panel: 2 Sodium 138 mmol/L (136-145) 12/12/22 15:10 Potassium 3.6 mmol/L (3.5-5.1) 12/12/22 15:10 Chloride 105 mmol/L (98-107) 12/12/22 15:10 Carbon Dioxide 28.1 mmol/L (21.0-32.0) 12/12/22 15:10 BUN 17 mg/dL (7-18) 12/12/22 15:10 Creatinine 0.7 mg/dL (0.55-1.02) 12/12/22 15:10 Est GFR (CKD-EPI 2020) 123.01 (mL/min/1.73m2) 12/12/22 15:10 Calcium 9.3 mg/dL (8.5-10.1) 12/12/22 15:10 Albumin 4.1 g/dL (3.4-5.0) 12/09/22 20:20 Glucose 101 mg/dL (74-106) 12/12/22 15:10 Liver Function Panel: Alanine Aminotransferase (ALT/SGPT) 16 U/L (14-59) 12/09/22 20: 20 Aspartate Amino Transf (AST/SGOT) 16 U/L (15-37) 12/09/22 20:20 Coagulation Panel: No Data to Display Cardiac Panel: No Data to Display Arterial Blood Gas: No Data to Display Venous Blood Gas: No Data to Display Pancreas Panel: No Data to Display Thyroid Panel: No Data to Display Infectious Disease: No Data to Display Blood Cultures: No Data to Display Toxicology Panel: No Data to Display Panel: Urine HCG, Qualitative Positive 12/03/22 14:27 Beta HCG, Quantitative 46489 mIU/mL (1-3) H 12/11/22 07:33 Anesthesia Assessment and Plan Anesthesia History Personal History: No History of Anesthesia Complications Family History: No Family History of Anesthesia Complications Exercise Tolerance Exercise Tolerance: Metabolic Equivalents>4 Pertinent Negatives Pertinent Negatives: No Symptoms of GERD Cardiac & Pulmonary Exam Cardiac Exam: Normal S1/S2 Heart Sounds Pulmonary Exam: Clear Bilateral Breath Sounds Implantable Cardiac Device Does patient have a Pacemaker or an ICD?: No Airway Exam Known Difficult Airway: No Mallampati Class: 1 Mouth Opening: Normal (> 3cm) Thyromental Distance: Greater than 3 cm Neck Range of Motion: Full ROM Neck Circumference: Normal Teeth Condition: Normal Dentition ASA Classification ASA Score: ASA 2 Emergency Case?: No NPO Status NPO Status: NPO Clears >2 hours, Solids >8 hours Status Status: Confirmed (non-viable) Anesthesia Plan Resuscitation Status: Full Code Anesthesia Technique: General Anesthesia Airway Planned: Endotracheal Tube Monitors Used: Standard Monitors
[2022-12-13] MEDS: Bupivacaine 0.25% Pres-Free 30 ML VIAL (08:17)
--- NOTE | 2022-12-13 08:34 | FALL_PTH ---
PATIENT: Tessa Salazar LOC: [facility] U#:[id number] AGE/SX: 27/F ROOM: RE12/13/[address]: Latisha Salazar : 1995 BED: DIS: 12/13/2022 SPEC #: [id number] RECD: 12/13/22 12:32 STATUS: VIOLET RE #: [id number] TALIA: 12/13/22 08:[address]: Latisha Salazar DEPT: Surgical Specimen RECD BY: Brenda Bautista ENTERED: 12/13/22 12:33 SP TYPE: Fall OTHR DR: Isa Pablo Tissues: 1 - FALLOPIAN TUBE (ECTOPIC) Procedures: GROSS AND MICRO LEVEL 4 Comments: [id number]
--- NOTE | 2022-12-13 09:43 | PDOC.DSDIS_ITS ---
Date of service: 12/13/22 Time of Service: 09:43 Discharge Plan Disposition Patient Disposition: Home Condition: Improving Condition: Good Discharge Details Reason For Visit: laparoscopy Attending Provider: Latisha Salazar Primary Care Provider: Isa Pablo [facility] Course Hospital Course: Underwent laparoscopic left salpingectomy for L ectopic . Pt had chromopertubation of remaining R fallopian tube. It was patent with spillage of indo carmine from the fimbriated end. Home Meds and New Rx's Prescriptions: No Action PNV #[id number] 30 mg iron-10 mg iron-1 mg capsule 1 cap PO DAILY epinephrine [EpiPen 2-Jermaine] 0.3 MG/0.3 ML auto-injector 0.3 mg IJ DIRECTED PRNQty: 1 3RF Discharge Instructions Additional Instructions: You will have a prescription for Percocet 5/325mg one tablet every 6 hours as needed for pain. You may take the Percocet if you pain not relieved with Ibuprofen. I have called in a prescription for Ibuprofen (Motrin) to your pharmacy. You may take one tablet of the 600mg strength every 6 hours as needed for pain. You have skin glue on your incisions. Leave it in place until you see Dr. Salazar in one week. 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
--- NOTE | 2022-12-13 10:10 | W.ANESPOSTOP ---
Postoperative Evaluation Date, Time and Location Date Performed: 12/13/22 Time Performed: 10:10 Patient Location: Day Surgery Unit Vital Signs Most Recent Imported Vital Signs: Most Recent Vital Signs Temp Pulse Resp BP Pulse Ox 36.7 C 70 11 L 101/66 100 12/13/22 10:04 12/13/22 10:04 12/13/22 10:04 12/13/22 10:04 12/13/22 10:04 Pain Score Most Recent Pain Score: Most Recent Pain Score Pain Level 0 12/13/22 10:04 Assessment Mental Status: Awake (Alert & Oriented to Patient Baseline) Airway and Respiratory Function: Patent airway with normal (patient baseline) respiratory exam Cardiovascular Function: Hemodynamically Stable Hydration Status: Adequately Hydrated Nausea & Vomiting: No Nausea or Vomiting Pain: Pt. Denies Any Pain Peripheral Nerve Block: Patient did not receive a nerve block
--- NOTE | 2022-12-13 10:25 | W.PM.OP ---
Date of service: 12/13/22 Time of Service: 10:25 Operative Note Operative Note DATE OF PROCEDURE: 12/13/22 PRE-OP DIAGNOSIS: abnormally rising hCG. threatened miscarriage POST-OP DIAGNOSIS: other (L fallopian tube ectopic ) patent R fallopian tube PROCEDURE: Laparoscopic left salpingectomy SURGEON: Latisha Salazar ASSISTING SURGEON: Negrita Davis ANESTHESIA TYPE: General LMA/ETT Refer to Anesthesia Record ESTIMATED BLOOD LOSS: 0 PATHOLOGY: other (L fallopian tube) COMPLICATIONS: None Patient was transported to: PACU Patient's condition: stable Indications: 27yo female currently 8w0d by LMP who has been followed for abnormally rising hCG with no evidence of IUP on TV OB u/s. Findings: Small amount of blood in pelvis. L fallopian tube fimbriated end clubbed and distended. Not actively bleeding. Filmy adhesions of the left fallopian tube to the left ovary. Normal appearing right and left ovaries. Right fallopian with filmy adhesions to posterior culdesac and pelvic side greer. Indigo carmine chromopertubation was performed thru the uterus and brisk efflux of indigo carmine was demonstrated from the right fallopian tube. Procedure Description: Patient was taken to the operating room where she was placed in the dorsal supine position and endotracheal anesthesia was administered.? She was then placed in the dorsolithotomy position in yellowfin stirrups and prepped in the usual sterile fashion.? SCDs were in place.?Pre-poperative antibiotic was administered. A surgical timeout was performed.? A Hulka uterine manipulator was inserted into the cervix and left in place and a bell catheter was inserted to gravity drainage. Attention was then turned to the abdominal portion of the case and the umbilical fold was infiltrated with 0.25% Marcaine and a 12 mm vertical skin incision was made in the umbilicus. Through this incision a Veres needle was inserted while connected to carbon dioxided as the distention medium. Intra-abdominal placement was confirmed by drop in the intra-abdominal pressure. Once a pneumoperitoneum was established a 12 mm A 12mm Visiport trocar was introduced into the abdomen under direct visualization.? The patient was then placed in Trendelenburg position and approximately 6 cm diagonal to the right and left of the umbilical incision the skin was transilluminated and the subcutaneous tissue infiltrated with quarter percent Marcaine and then incised with a scalpel.? Under direct visualization two 5 mm ports were placed in the right and left lower quadrants respectively.? The abdomen was inspected with the above-noted findings. The infundibulum of the left fallopian tube was distended and clubed. A LigaSure electrocautery device was used to clamp cauterize and transect the left mesosalpinx from the proximal to distal fallopian tube. Once the left fallopian tube was freed it was placed in a collection bag and delivered through the umbilical skin incision.? The abdomen was reinspected and the right fallopian tube pedicle was noted to be hemostatic. The posterior cul-de-sac was copiously irrigated with Normal Saline which was then suction aspirated. Patient was repositioned in the dorsal supine position and both 5 mm ports were removed under direct visualization.? The pneumoperitoneum was deflated and the umbilical port site was removed.? The rectus fascia below the 12 mm port site was reapproximated with interrupted suture of 0 Vicryl.? The skin was reapproximated on the umbilical port site with a running subcuticular closure of 4-0 Monocryl.? The edges of both 5 mm and 12 mm port sites were reapproximated with skin glue.? Patient was placed in the dorsal supine position awakened extubated and transported recovery area in stable condition.? All sponge lap needle counts correct x2.
[2022-12-13] MEDS: oxyCODONE 5 mg/Acetaminophen 325 mg TAB PO (11:02)
== END 2022-12-13 12:10 | disposition home or self-care (01) ==
PROVIDERS: PCP Nurse Practitioner Family; Visit Provider Obstetrics & Gynecology Gynecology
PROC: (CPT 49320; principal; 2022-12-13 07:30)
DX: O00.102 Left tubal pregnancy without intrauterine pregnancy
CPT/HCPCS: 59151; 58350; 85461; 86900; 86901; 88305; 90384; J0131; J1100; J1885; J2001; J2250; J2405; J2704; J3010

== ENCOUNTER 2022-12-27 13:02 | Outpatient (CLI) | payer MEDICAID, SELFPAY ==
[2022-12-27 13:52] LABS: HCG Quant, Pregnancy 61 mIU/mL (1-3)
== END 2022-12-27 13:03 | disposition home or self-care (01) ==
LOC: LBO 13:03
PROVIDERS: PCP Nurse Practitioner Family; Visit Provider Obstetrics & Gynecology Gynecology
DX: O00.102 Left tubal pregnancy without intrauterine pregnancy (principal); O03.9 Complete or unspecified spontaneous abortion without complication; Z90.79 Acquired absence of other genital organ(s); Z3A.00 Weeks of gestation of pregnancy not specified
CPT/HCPCS: 36415; 84702

== ENCOUNTER 2023-09-23 13:01 | Emergency (ER) | payer MEDICAID, SELFPAY ==
[2023-09-23 13:03] VITALS: BP 109/74; PULSE 71; RESP 16; TEMP 37.1; O2SAT 100
[2023-09-23 13:25] LABS: Bilirubin Negative (Negative); Blood Large (Negative); Clarity Clear (Clear); Glucose Negative (Negative); Ketones Negative (Negative); Leukocyte Esterase Negative (Negative); Nitrite Negative (Negative); Urobilinogen 0.2 mg/dL (Up to 0.2); pH 5.5 (5-8)
[2023-09-23 13:32] LABS: Bacteria Negative HPF (Negative); C & S Indicated? No; Casts Negative LPF (Negative); Crystals Negative HPF (Negative); Epithelial Cells Few HPF (Negative); Mucus Negative (Negative); WBC 0-2 HPF (0-5)
[2023-09-23] MEDS: Normal Saline 1,000 ML 1000 ML IV (14:00)
[2023-09-23] MEDS: Ketorolac 15 MG/ML VIAL 10 MG IVP (14:00)
[2023-09-23] MEDS: Ondansetron 4 MG/2 ML VIAL IVP (14:00)
[2023-09-23 14:19] LABS: Abs Immature Grans 0.01 10^3/uL (0.0-0.06); Absolute Basophil Count 0.04 10^3/uL (0.0-0.2); Absolute Eosinophil Count 0.14 10^3/uL (0.0-0.7); Absolute Lymphocyte Count 1.37 10^3/uL (1.2-3.4); Absolute Monocyte Count 0.45 10^3/uL (0.1-0.8); Absolute Neutrophil Count 3.33 10^3/uL (1.2-6.7); Basophils % 0.7 %; Eosinophils % 2.6 %; HCT 37.8 % (36.0-46.0); HGB 12.8 g/dL (11.2-15.7); Immature Grans % 0.2 %; Lymphocytes % 25.7 %; MCH 30.8 pg (27.0-33.0); MCHC 33.9 % (32.0-36.0); MCV 91 fL (80-95); MPV 10.4 fL (8.0-11.0); Monocytes % 8.4 %; Neutrophils % 62.4 %; Platelet Count 181 10^3/uL (130-400); RBC 4.16 10^6/uL (3.93-5.22); RDW 12.7 % (11.7-14.6); RDW-SD 41.7 fL; WBC 5.34 10^3/uL (4.4-10.8)
--- NOTE | 2023-09-23 14:27 | DI.CT_ITS ---
Exam(s) CT ABDOMEN PELVIS WO EXAM: CT ABDOMEN PELVIS WO CLINICAL HISTORY: LEFT FLANK PAIN. TECHNIQUE: Imaging Protocol: Axial computed tomography images with coronal and sagittal reformatted images were created and reviewed. COMPARISON: No exams were available for comparison FINDINGS: ABDOMEN: Lung Bases: Normal where visualized. Liver: Normal density. No measurable mass. Gallbladder and biliary tract: No radiodense calculus or biliary ductal dilation. Pancreas: Normal density, no abnormal calcifications or inflammatory process. Spleen: Normal. Kidneys: Normal size, contour and axis.No radiodense stones or obstructive uropathy. There are few ti ny hyperdense lesions in the left kidney. They are too small for further characterization but likely reflect small hyperdense hemorrhagic cyst. No follow-up is recommended. Adrenal glands: No mass is seen. Lymph nodes: Within normal limits. Abdominal Aorta: Abdominal portion non-dilated. PELVIS: Bladder:Symmetric distention, no gross wall thickening. Bowel: Lack of abdominal fat limits examination, but no definite bowel wall thickening or obstruction is seen. There is stool seen throughout the colon suggesting constipation. The stomach is incomple tely distended limiting evaluation. The appendix is not definitely visualized. But no inflammatory changes are seen in the right lower quadrant. Peritoneal cavity: No ascites, collection or mesenteric inflammatory response. No free air. Reproductive organs: Unremarkable as visualized. Bones: Within normal limits. Soft Tissues: Within normal limits. IMPRESSION: No evidence of nephrolithiasis or hydronephrosis. Follow-up as clinically appropriate. RADIATION DOSE DELIVERED: 361.33mGy.cm Total DLP DATA REPOSITORY: All CT scans at this facility are submitted to the National Radiology Data Registry (NRDR) Dose Index Registry (DIR) with the [employer] (A[employer]). RADIATION OPTIMIZATION: All CT scans at this facility use at least one of these dose optimization te chniques: automated exposure control; mA and/or kV adjustment per patient size (includes targeted exa ms where dose is matched to clinical indication); or iterative reconstruction.
[2023-09-23 14:33] LABS: ALT 14 U/L (14-59); AST 15 U/L (15-37); Albumin 3.9 g/dL (3.4-5.0); Alkaline Phosphatase 62 U/L (46-116); Anion Gap 8.9 mmol/L (3-11); BUN 11 mg/dL (7-18); Bilirubin, Total 0.36 mg/dL (0.2-1.0); CO2 27.1 mmol/L (21.0-32.0); CREATININE 0.8 mg/dL (0.55-1.02); Calcium 8.6 mg/dL (8.5-10.1); Chloride 106 mmol/L (98-107); Estimated GFR 104.15 (mL/min/1.73m2); Glucose 87 mg/dL (74-106); Potassium 3.7 mmol/L (3.5-5.1); Sodium 142 mmol/L (136-145); Total Protein 6.9 g/dL (6.4-8.2)
[2023-09-23 15:48] VITALS: BP 98/64; PULSE 72; RESP 16; O2SAT 98
--- NOTE | 2023-09-23 15:55 | W.ED.GENAD ---
Discharge Plan Disposition Patient Disposition: Home Condition: Stable Discharge Details Clinical Impression: Abdominal pain, Constipation Primary Care Provider: Isa Pablo ED Provider: Lucila Gongora Home Meds and New Rx's Prescriptions: No Action ibuprofen 600 mg tablet 600 mg PO Q6H PRN (Reason: pain) Qty: 60 0RF Vitamin 27 mg iron- 800 mcg tablet 1 tab PO DAILY Qty: 90 4RF epinephrine [EpiPen 2-Jermaine] 0.3 MG/0.3 ML auto-injector 0.3 mg IJ DIRECTED PRNQty: 1 3RF naproxen 500 mg tablet 500 mg PO DAILY PRN Patient Comments: TAKE ONE TABLET BY MOUTH EVERY 8 HOURS NEEDED FOR HEADACHE; MAY TAKE WITH SUMATRIPTAN Discharge Instructions Instructions: Constipation, Adult ED Additional Instructions: Start MiraLAX 1-2 capfuls daily until you are having regular soft bowel movements Increase water intake Use Motrin or Tylenol as needed for pain. Follow-up with your PCP if symptoms persist. Return to the emergency department if you develop severe pain, or not tolerating anything by mouth HPI General Date/Time Provider Initiated Documentation: 09/23/23 13:40. Limitations to Documentation: no limitations. Information obtained by: patient. HPI Narrative: 28-year-old female with past medical history of ectopic presents for evaluation of abdominal pain. She reports that she has been having this pain for the last 2 days. It is located on the left it starts on the left side and radiates down her abdomen. It is not associated with vomiting though she is having some nausea. She denies any diarrhea. She states that she is on her. Currently. She has not had any fever. Pain is intermittent, no exacerbating or relieving symptoms. Related Data Home Medications Medication Instructions Recorded Confirmed epinephrine 0.3 mg/0.3 mL 0.3 mg (0.3 mL) IJ DIRECTED PRN 09/30/17 09/23/23 injection, auto-injector (EpiPen ##1 2-Jermaine) ibuprofen 600 mg tablet 600 mg PO Q6H PRN pain #60 tabs 12/13/22 09/23/23 vits no.124-ferrous fum 1 tab PO DAILY #90 tabs 02/06/23 09/23/23 27 mg iron-folic acid 800 mcg tablet ( Vitamin) naproxen 500 mg tablet 500 mg PO DAILY PRN 07/01/24 07/01/24 Previous Rx's Medication Instructions Recorded epinephrine 0.3 mg/0.3 mL 0.3 mg (0.3 mL) IJ DIRECTED PRN 09/30/17 injection, auto-injector (EpiPen ##1 2-Jermaine) ibuprofen 600 mg tablet 600 mg PO Q6H PRN pain #60 tabs 12/13/22 vits no.124-ferrous fum 1 tab PO DAILY #90 tabs 02/06/23 27 mg iron-folic acid 800 mcg tablet ( Vitamin) Allergies Allergy/AdvReac Type Severity Reaction Status Date / Time bee venom protein (honey bee) Allergy Severe anaphylaxis Unverified 09/23/23 13:07 shellfish derived Allergy Severe Anaphylaxis Verified 09/23/23 13:07 shrimp Allergy Severe Unknown Verified 09/23/23 13:07 strawberry Allergy Mild Hives Unverified 09/23/23 13:07 dairy products AdvReac Mild upset Uncoded 09/23/23 13:07 stomach General Stated Complaint: Abd Prob YASMINE: 3 Exam Narrative Exam Narrative: Review of Systems: All systems reviewed & are unremarkable except as noted in HPI and below Well-developed, no acute distress NCAT PERRL, normal conjunctiva RRR Unlabored respiratory effort Nondistended abdomen soft, nontender, no guarding or rebound Extremities w/o deformity, no cyanosis, no edema No rashes or lesions. no focal neurologic deficits Appropriate mood and affect Course Vital Signs Vital signs: Vital Signs Temperature 37.1 C 09/23/23 13:03 Pulse 71 09/23/23 13:03 Respiratory Rate 16 09/23/23 13:03 Blood Pressure 109/74 09/23/23 13:03 Pulse Oximetry 100 09/23/23 13:03 Temperature 37.1 C 09/23/23 13:03 Temperature Source Temporal Artery Scan 09/23/23 13:03 Pulse 72 09/23/23 15:48 Respiratory Rate 16 09/23/23 15:48 Respiratory Effort Normal, Non-Labored 09/23/23 13:08 Blood Pressure 98/64 L 09/23/23 15:48 Blood Pressure Position Sitting 09/23/23 13:03 Pulse Oximetry 98 09/23/23 15:48 Oxygen Delivery Method Room Air 09/23/23 13:03 Oxygen Flow Rate 0 09/23/23 13:03 Lab/Test Results Lab/Test Results: Laboratory Tests Range/Units 09/23/23 09/23/23 13:10 14:05 WBC (4.4-10.8) 10^3/uL 5.34 RBC (3.93-5.22) 10^6/uL 4.16 Hgb (11.2-15.7) g/dL 12.8 Hct (36.0-46.0) % 37.8 MCV (80-95) fL 91 MCH (27.0-33.0) pg 30.8 MCHC (32.0-36.0) % 33.9 RDW (11.7-14.6) % 12.7 Plt Count (130-400) 10^3/uL 181 MPV (8.0-11.0) fL 10.4 Immature Gran % % 0.2 Neutrophils % % 62.4 Lymphocytes % % 25.7 Monocytes % % 8.4 Eosinophils % % 2.6 Basophils % % 0.7 Nucleated RBC % (0.0-0.3) % 0.0 Absolute Neutrophils (1.2-6.7) 10^3/uL 3.33 Absolute Lymphocytes (1.2-3.4) 10^3/uL 1.37 Absolute Monocytes (0.1-0.8) 10^3/uL 0.45 Absolute Eosinophils (0.0-0.7) 10^3/uL 0.14 Absolute Basophils (0.0-0.2) 10^3/uL 0.04 Sodium (136-145) mmol/L 142 Potassium (3.5-5.1) mmol/L 3.7 Chloride (98-107) mmol/L 106 Carbon Dioxide (21.0-32.0) mmol/L 27.1 Anion Gap (3-11) mmol/L 8.9 BUN (7-18) mg/dL 11 Creatinine (0.55-1.02) mg/dL 0.8 Est GFR (CKD-EPI 2020) (mL/min/1.73m2) 104.15 Glucose (74-106) mg/dL 87 Calcium (8.5-10.1) mg/dL 8.6 Total Bilirubin (0.2-1.0) mg/dL 0.36 AST (15-37) U/L 15 ALT (14-59) U/L 14 Alkaline Phosphatase (46-116) U/L 62 Total Protein (6.4-8.2) g/dL 6.9 Albumin (3.4-5.0) g/dL 3.9 Urine Color (Yellow) Yellow Urine Clarity (Clear) Clear Urine pH (5-8) 5.5 Ur Specific [place] (1.005-1.025) 1.010 Urine Protein (Neg-Trace) mg/dL Negative Urine Ketones (Negative) mg/dL Negative Urine Blood (Negative) Large H Urine Nitrite (Negative) Negative Urine Bilirubin (Negative) Negative Urine Urobilinogen (Up to 0.2) mg/dL 0.2 Ur Leukocyte Esterase (Negative) Negative Urine RBC (0-2) HPF 5-10 H Urine WBC (0-5) HPF 0-2 Ur Epithelial Cells (Negative) HPF Few Urine Crystals (Negative) HPF Negative Urine Bacteria (Negative) HPF Negative Urine Casts (Negative) LPF Negative Urine Mucus (Negative) Negative Ur Culture Indicated? No Urine Glucose (Negative) mg/dL Negative POC- Test(urine) Negative Medical Decision Making Emergent evaluation of abdominal pain. Pain is left-sided and intermittent. She has a benign abdominal exam, mild tenderness, hemodynamically stable. Initial differential includes UTI, pyelonephritis, kidney stone, low suspicion for ovarian torsion. Urinalysis reviewed there is blood, no evidence of infection. She is on her. So this is likely the source of the blood show given her symptoms, although it can also consider kidney stone. Lab work reviewed. No leukocytosis or anemia. No electrolyte derangement. Normal renal function. CT imaging reviewed, there is no sign of a kidney stone or acute intra-abdominal process. The patient is fairly constipated which I suspect is likely the cause of her intermittent crampy pain. I recommend MiraLAX and increase water intake. Return precautions advised. Recommend close follow-up with PCP. Medical Records Medical records reviewed: Yes I reviewed the patient's medical records. Quality:[facility] Health Related Social Needs: No Data to Display PFSH All Active Problems (Updated 12/13/22 @ 09:48 by Latisha Salazar MD) Constipation (Acute) Abdominal pain (Acute) Pelvic pain (Acute) 03/2023. after depoprovera inj 02/2023. suspect pt will menstruate within the month. Patient desires (Acute) Contraception (Acute) OCPs resulted in depression. Nexplanon broke into pieces in arm. 12/27/22 DepoProvera 150mg IM. Depot contraception (Acute) History of unilateral salpingectomy (Acute) 12/13/22. L ectopic . laparoscopic salpingectomy. Nl chromopertubation of R fallopian tube. Miscarriage of left tubal ectopic (Acute) Back pain (Acute) Muscle spasm (Acute) Throat discomfort (Acute) Allergic reaction (Acute) [place] teeth extracted (Acute) Medical History (Updated 09/23/23 @ 15:27 by Lucila Gongora MD) Concussion (02/26/12) Anemia Eating disorder Per pt. states resolved Injury of left shoulder Crepitus of left shoulder joint SLAP lesion of left shoulder Contusion of left shoulder Chlamydia infection Urine Chlamydia + 927/16. Rx with Azithromycin. Family History Sister Asthma Social History (Updated 04/17/23 @ 15:10 by Latisha Salazar MD) Smoking/Tobacco Use Status: Current every day Tobacco Type: cigarettes and e-cigarettes Quit status: considering quitting Smoking risk assessment performed?: Yes Alcohol Intake: never Drug use: Occasionally Substance use type: marijuana Details: last marijuana use a couple days ago Household members: friend(s) and other Details: Williams. 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 Do you feel safe at home: Yes Do you feel safe in your relationship?: Yes Female Reproductive History Menstrual Duration of menses: 3-5 days control method: implanted History History 3 Para Hx # Term Pregnancies Multiple births Hx # Pregnancies Ectopic pregnancies 1 AB induced Hx Number of Living Children 0 AB spontaneous 2 Past Pregnancies Del. Date GA/Weeks # Preg Succ Route Wgt Sex Labor Lgth Anesthesia Location Prov Complic 12/13/22 No [place] Delivery Date: 12/13/22 Last Updated by: Aditi You LPN Surgery for ectopic
== END 2023-09-23 15:49 | disposition home or self-care (01) ==
PROVIDERS: Emergency Provider Emergency Medicine; PCP Nurse Practitioner Family
DX: K59.00 Constipation, unspecified (principal); R10.9 Unspecified abdominal pain
CPT/HCPCS: 80053; 81025; 96361; 96374; 96375; 99284; 74176; 81003; 81015; 85025; J1885; J2405

== ENCOUNTER 2023-12-04 15:32 | Outpatient (CLI) | payer MEDICAID, SELFPAY ==
[2023-12-04 15:42] LABS: HCG Quant, Pregnancy 1 mIU/mL (1-3)
== END 2023-12-04 15:33 | disposition home or self-care (01) ==
LOC: LBO 15:32
PROVIDERS: PCP Nurse Practitioner Family; Visit Provider Obstetrics & Gynecology Gynecology
DX: Z31.9 Encounter for procreative management, unspecified (principal); N91.2 Amenorrhea, unspecified
CPT/HCPCS: 36415; 84702

== ENCOUNTER 2024-03-18 21:59 | Emergency (ER) | payer MEDICAID, SELFPAY ==
[2024-03-18 22:04] VITALS: BP 104/57; PULSE 93; RESP 18; O2SAT 100
--- NOTE | 2024-03-18 22:11 | ED.GENADUL_ITS ---
Discharge Plan Disposition Patient Disposition: Home Condition: Good Discharge Details Clinical Impression: Fall, Back contusion Primary Care Provider: Isa Pablo ED Provider: Enoc Jeffers [place] Meds and New Rx's Prescriptions: No Action Vitamin 27 mg iron- 800 mcg tablet 1 tab PO DAILY Qty: 90 4RF epinephrine [EpiPen 2-Jermaine] 0.3 MG/0.3 ML auto-injector 0.3 mg IJ DIRECTED PRNQty: 1 3RF naproxen 500 mg tablet 500 mg PO DAILY PRN Patient Comments: TAKE ONE TABLET BY MOUTH EVERY 8 HOURS NEEDED FOR HEADACHE; MAY TAKE WITH SUMATRIPTAN Discharge Instructions Instructions: Minor Contusion ED Additional Instructions: You were seen for back pain after a fall. X-rays of your cervical spine and thoracic spine are negative for acute fracture or injury. You should alternate acetaminophen with ibuprofen to help control pain. Ice on and off for the next couple of days. Follow-up with your primary care next week if not improving. Return to ED for any shortness of breath, neurologic change, other concerns. Referrals: Isa Pablo [Primary Care Provider] - [facility] General Mode of arrival: ambulatory . Date/Time Provider Initiated Documentation: 03/18/24 22:09 . Limitations to Documentation: no limitations . Information obtained by: patient and RN notes reviewed . HPI Narrative: Patient presents to ED with complaint of neck and back pain status post slip and fall yesterday. She reports striking the back of her head as well but had no loss of consciousness. Denies headache currently. Has had no neurologic change and no nausea vomiting. Complaining about pain at the base of her neck and upper back. She took Naprosyn this morning but has not done anything else for the pain. Denies any chest pain or shortness of breath. Denies any difficulty ambulating. Related Data Home Medications ?Medication ?Instructions ?Recorded ?Confirmed epinephrine 0.3 mg/0.3 mL 0.3 mg (0.3 mL) IJ DIRECTED PRN 09/30/17 03/18/24 injection, auto-injector (EpiPen ##1 2-Jermaine) vits no.124-ferrous fum 1 tab PO DAILY #90 tabs 02/06/23 03/18/24 27 mg iron-folic acid 800 mcg tablet ( Vitamin) naproxen 500 mg tablet 500 mg PO DAILY PRN 09/23/23 03/18/24 Previous Rx's ?Medication ?Instructions ?Recorded epinephrine 0.3 mg/0.3 mL 0.3 mg (0.3 mL) IJ DIRECTED PRN 09/30/17 injection, auto-injector (EpiPen ##1 2-Jermaine) vits no.124-ferrous fum 1 tab PO DAILY #90 tabs 02/06/23 27 mg iron-folic acid 800 mcg tablet ( Vitamin) Allergies Allergy/AdvReac Type Severity Reaction Status Date / Time bee venom protein (honey bee) Allergy Severe anaphylaxis Unverified 03/18/24 22:08 shellfish derived Allergy Severe Anaphylaxis Verified 03/18/24 22:08 shrimp Allergy Severe Unknown Verified 03/18/24 22:08 strawberry Allergy Mild Hives Unverified 12/04/23 14:35 dairy products AdvReac Mild upset Uncoded 03/18/24 22:08 stomach General Stated Complaint: Nk/Back Pain YASMINE: 3 Review of Systems Narrative: Per HPI Exam Narrative Exam Narrative: Const: WDWN female in NAD. VS per triage. HEENT: NC/AT. Normal facial exam. Neck: Supple with normal ROM. Trachea midline. Mild tenderness midline base of neck/upper back. Lungs: Normal respiratory effort. Lungs are clear. Cor: RRR without murmur. Good radial pulses. Back: Normal ROM. Mild tenderness mid thoracic midline. Neuro: A+O x 3. Normal speech, mentation, gait. Cranial nerves II - XII grossly intact. No gross motor or sensory deficit. Course Vital Signs Vital signs: Vital Signs Pulse 93 H 03/18/24 22:04 Respiratory Rate 18 03/18/24 22:04 Blood Pressure 104/57 L 03/18/24 22:04 Pulse Oximetry 100 03/18/24 22:04 Pulse 93 H 03/18/24 22:04 Respiratory Rate 18 03/18/24 22:04 Blood Pressure 104/57 L 03/18/24 22:04 Pulse Oximetry 100 03/18/24 22:04 Oxygen Delivery Method Room Air 03/18/24 22:04 Oxygen Flow Rate 0 03/18/24 22:04 Medical Decision Making Patient presenting to ED with complaint of worsening neck and back pain after fall yesterday. She also reports striking her head but had no loss of consciousness, has no headache, has no neurologic changes. She does not require imaging of her head at this time. She has mild tenderness only at the base of the neck in the mid thoracic spine. More paraspinal than truly midline. Patient however seems quite concerned and reports previous neck and back problems. My suspicion for fracture is extremely low. Will perform cervical spine and thoracic spine x-rays only. Urine obtained and negative. Cervical spine and thoracic spine x-rays per my read are negative for acute fracture or dislocation. Preliminary radiology read agrees. Patient was given acetaminophen here. Recommend continue use of acetaminophen and ibuprofen in an alternating fashion. Ice on and off. Follow-up with primary care as outpatient next week if not improving. Return precautions provided. Imaging Data Radiologic Study: Attestation: I personally reviewed and interpreted this imaging study as follows: Imaging: X-Ray My impression: See MDM PFS All Active Problems Chlamydia infection (Acute) Urine Chlamydia + 12/20/15. Rx with Azithromycin. Back contusion (Acute) Fall (Acute) Amenorrhea (Acute) Pelvic pain (Acute) 03/2023. after depoprovera inj 02/2023. suspect pt will menstruate within the month. Patient desires (Acute) Contraception (Acute) OCPs resulted in depression. Nexplanon broke into pieces in arm. 12/27/22 DepoProvera 150mg IM. Depot contraception (Acute) Medical History Miscarriage of left tubal ectopic Anemia Eating disorder Per pt. states resolved Surgical History [place] teeth extracted History of unilateral salpingectomy 12/13/22. L ectopic . laparoscopic salpingectomy. Nl chromopertubation of R fallopian tube. Family History Sister Asthma Social History Smoking/Tobacco Use Status: Current every day Tobacco Type: cigarettes and e- cigarettes Quit status: considering quitting Smoking risk assessment performed?: Yes Alcohol Intake: never Drug use: Occasionally Substance use type: marijuana Details: last marijuana use a couple days ago Household members: friend(s) and other Details: [place]. 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 Do you feel safe at home: Yes Do you feel safe in your relationship?: Yes Female Reproductive History Menstrual Duration of menses: 3-5 days control method: implanted History History 3 Para Hx # Term Pregnancies Multiple births Hx # Pregnancies Ectopic pregnancies 1 AB induced Hx Number of Living Children 0 AB spontaneous 2 Past Pregnancies Del. Date GA/Weeks # Preg Succ Route Wgt Sex Labor Lgth Anesth esia Location Prov Complic 12/13/22 No [place] Delivery Date: 12/13/22 Last Updated by: Aditi You LPN Surgery for ectopic
--- NOTE | 2024-03-18 22:15 | DI.RAD_ITS ---
Exam(s) XR CERVICAL SP ROSARIO TRAUMA 2-3V EXAM: XR CERVICAL SP ROSARIO TRAUMA 2-3V CLINICAL HISTORY: neck pain/trauma. TECHNIQUE: 2D digital imaging was performed. Three views. COMPARISON: CR,XR XR THORACIC SPINE COMPLETE from 06/05/2020 FINDINGS: Exam is limited by the patient's hair overlying the neck.. BONES: No fracture or destructive lesion. Vertebral bodies are unremarkable. DISKS: Intervertebral disc spaces are maintained. ALIGNMENT: Cervical spinal alignment is within normal limits. The odontoid and atlantoaxial articulat ions are normal. SOFT TISSUE: Normal. The lung apices are clear. IMPRESSION: Unremarkable radiographs of the cervical spine. DATA REPOSITORY: RADIATION DOSE DELIVERED:
--- NOTE | 2024-03-18 22:15 | DI.RAD_ITS ---
Exam(s) XR THORACIC SPINE COMPLETE EXAM: XR THORACIC SPINE COMPLETE CLINICAL HISTORY: pain/trauma. TECHNIQUE: 2D digital imaging was performed. Three views. COMPARISON: MR MR THORACIC SPINE WO from 06/22/2020 FINDINGS: BONES: There is no fracture or destructive lesion. The vertebral bodies and posterior elements are un remarkable. ALIGNMENT: Within normal limits. DISKS: Interverebral disc spaces are maintained. SOFT TISSUE: Visualized lungs are clear. IMPRESSION: Unremarkable radiographs of the thoracic spine. DATA REPOSITORY: RADIATION DOSE DELIVERED:
[2024-03-18] MEDS: Acetaminophen 500 MG TAB 1000 MG PO (22:55)
--- NOTE | 2024-03-18 23:10 | DI.VRAD_ITS ---
PROCEDURE INFORMATION: Exam: XR Thoracic Spine Exam date and time: 03/18/2024 22:46 Age: 28 years old Clinical indication: Injury or trauma; Fall; Blunt trauma (contusions or hematomas); Injury details: Pain/trauma TECHNIQUE: Imaging protocol: Radiologic exam of the thoracic spine. Views: 3 views. COMPARISON: MR THORACIC SPINE WO 06/22/2020 09:55 FINDINGS: Bones/joints: No acute fracture or subluxation. No significant degenerative changes are seen. Soft tissues: Unremarkable. IMPRESSION: No acute bony pathology. Dictated and Authenticated by: Pastora Lowe MD. Ordering:DAVID Stubbs MD
--- NOTE | 2024-03-18 23:10 | DI.VRAD_ITS ---
PROCEDURE INFORMATION: Exam: XR Cervical Spine Exam date and time: 03/18/2024 22:44 Age: 28 years old Clinical indication: Injury or trauma; Fall; Blunt trauma; Injury details: Neck pain/trauma TECHNIQUE: Imaging protocol: Radiologic exam of the cervical spine. Views: 2 or 3 views. COMPARISON: CR XR CERVICAL SP ROSARIO TRAUMA 2-3V 06/05/2020 19:09 FINDINGS: Bones/joints: No acute fracture or subluxation. No significant degenerative changes are seen. Soft tissues: Unremarkable. IMPRESSION: No cervical spine fracture. Dictated and Authenticated by: Pastora Lowe MD. Ordering:DAVID Stubbs MD
== END 2024-03-18 23:20 | disposition home or self-care (01) ==
PROVIDERS: Emergency Provider Emergency Medicine; PCP Nurse Practitioner Family
DX: S20.223A Contusion of bilateral back wall of thorax, initial encounter (principal); M54.2 Cervicalgia; F17.210 Nicotine dependence, cigarettes, uncomplicated; F17.290 Nicotine dependence, other tobacco product, uncomplicated; W00.0XXA Fall on same level due to ice and snow, initial encounter; Y93.01 Activity, walking, marching and hiking
CPT/HCPCS: 99283; 72040; 72072

== ENCOUNTER 2024-12-10 11:03 | Outpatient (REF) | payer MEDICAID, SELFPAY | END 2024-12-10 11:04 | disposition home or self-care (01) | LOC: LBN 11:03 | PROVIDERS: PCP Nurse Practitioner Family; Visit Provider Obstetrics & Gynecology | DX: Z12.4 Encounter for screening for malignant neoplasm of cervix (principal) | CPT/HCPCS: 88142 ==

== ENCOUNTER 2025-02-01 10:26 | Outpatient (CLI) | payer MEDICAID, SELFPAY ==
[2025-02-01 10:23] VITALS: BP 106/69; PULSE 83; RESP 18; TEMP 37; O2SAT 100
--- NOTE | 2025-02-01 10:50 | PDOC.PAIN ---
Date of service: 02/01/25 Time of Service: 11:16 Pain Managment Procedure Note Procedure Note Procedure Note: CERVICAL EPIDURAL STEROID INJECTION ? Pre-procedure Diagnosis: M54.12- Radiculopathy, cervical region ? Post-procedure Diagnosis:? The same as above ? Sedation:? ? none ? Medication: Depo-Medrol 80 mg, Omnipaque 1 mL ? Estimated blood loss:? less than 2 ml ? Surgeon:? Colt Granados MD Comment: Patient has herniated disc C5-6 left of midline with left radicular symptoms ? Procedure Detail:? The procedure and potential risks were explained to the patient and informed written consent was obtained. The patient was escorted to the procedure room and placed in the prone position. Pillows were utilized for proper positioning and comfort. Time out was performed in the procedure room with nursing staff confirming the patient's identity, procedure to be performed, allergies, and any blood thinning or anti-platelet medications.? The patient's neck and upper back was prepped with ChloraPrep and draped in a sterile fashion. Sterile technique was maintained throughout the procedure.? Sterile gloves were used, a face mask was worn, and new single dose vials of all medications were used with the top being swabbed with alcohol and given time to dry prior to withdrawal of medication. Lidocaine 1% was used to anesthetize the skin. Using a 25-gauge 1.5 inch needle, 1% lidocaine was instilled into the superficial soft tissue overlying the targeted area to provide local anesthesia. With fluoroscopic guidance, a 17 -gauge Tuohy needle was advanced toward the interlaminar space of C7-T1. The needle was then advance through the ligamentum flavum and into the posterior epidural space using the loss of resistance technique. Correct needle placement was confirmed through review of the AP and contralateral oblique fluoroscopic views. A 19-gauge Arrow catheter was threaded cephalad to the Left C5-6 Following negative aspiration, 1 ml of Omnipaque 240 contrast was injected which confirmed good flow throughout the epidural space and no evidence of vascular flow or flow into adjacent compartments. Next, following negative aspiration, 1 ml of normal saline and 80mg of Depo-Medrol was injected. The needle and catheter were gently removed intact. The patient tolerated the procedure well and was transported to the recovery area for observation and discharge instructions. Permanent images saved and recorded. Plan:? Follow up PRN. PAIN PRE PROCEDURE 10/01 POST PROCEDURE COMMENT: could repeat as needed. Coding Conscious Sedation used for procedure: No CPT Codes: Inj Spine C/T w/Imaging - [id number] ([id number] ~G) Additional Codes: Date of Service () Diagnoses: M54.12- Radiculopathy, cervical region
[2025-02-01 11:04] VITALS: PULSE 85; O2SAT 99
[2025-02-01 11:10] VITALS: PULSE 64; O2SAT 100
--- NOTE | 2025-02-01 11:15 | DI.RAD_ITS ---
Exam(s) XR PAIN CLINIC CERVICAL SP 2V EXAM: XR PAIN CLINIC CERVICAL SP 2V CLINICAL HISTORY: DX: Cervical Radiculopathy. TECHNIQUE: Fluoroscopy was provided for the referring physician for guidance with performing pain clinic injection procedure. COMPARISON: No exams were available for comparison FINDINGS: Please see procedure note for details. Fluoro time: 13.5 seconds RADIATION DOSE DELIVERED: Ka,r=0.93 mGy
[2025-02-01] MEDS: Omnipaque 240 MG/ML 50 ML BTL IJ (11:21)
[2025-02-01] MEDS: methylPREDNISolone ACETATE 40 MG/ML VIAL IJ (11:21)
[2025-02-01] MEDS: Epidural Tray 1 EACH MC (11:21)
== END 2025-02-01 10:27 | disposition home or self-care (01) ==
LOC: PC 10:26
PROVIDERS: PCP Orthopaedic Surgery; Visit Provider Anesthesiology Pain Medicine
DX: M54.12 Radiculopathy, cervical region (principal)
CPT/HCPCS: 62321; 72040; 81025; J1010; Q9967

== ENCOUNTER 2025-02-03 12:59 | Outpatient (REF) | payer MEDICAID, SELFPAY | END 2025-02-03 13:00 | disposition home or self-care (01) | LOC: LBN 12:59 | PROVIDERS: PCP Orthopaedic Surgery; Visit Provider Nurse Practitioner Family | DX: J02.9 Acute pharyngitis, unspecified (principal) | CPT/HCPCS: 87070 ==

== ENCOUNTER 2025-03-14 18:34 | Emergency (ER) | payer MEDICAID, SELFPAY ==
[2025-03-14] VITALS (21 sets, daily range): BP systolic 90–134; BP diastolic 62–84; PULSE 79–136; RESP 16–24; TEMP 36.8; O2SAT 99–100
[2025-03-14] MEDS: methylPREDNISolone SUCC 125 MG VIAL IVP (19:12)
[2025-03-14] MEDS: Famotidine 20 MG/2 ML VIAL IVP (19:15)
[2025-03-14] MEDS: diphenhydrAMINE 50 MG/ML VIAL IVP (19:16)
[2025-03-14] MEDS: Normal Saline 1,000 ML 1000 ML IV (19:16)
[2025-03-14] MEDS: EPINEPHrine 0.3 MG KIT IM (21:00)
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
== END 2025-03-14 20:50 | disposition home or self-care (01) ==
PROVIDERS: Emergency Provider Physician Assistant; PCP Orthopaedic Surgery
DX: T78.19XA Other adverse food reactions, not elsewhere classified, initial encounter (principal); R13.10 Dysphagia, unspecified; X58.XXXA Exposure to other specified factors, initial encounter
CPT/HCPCS: 96361; 96374; 96375; 99284; 99283; J0165; J1200; J2919